=== PATIENT | female | born 1965 | race Caucasian/White ===

== ENCOUNTER 2021-01-20 11:55 | Outpatient (CLI) | payer MEDICARE ==
[~2021-01-20] VITALS: Ht 162.6 cm; Wt 83.8 kg
[2021-01-20] MEDS ORDERED: ILOP4TAB2 PO (12:07)
[2021-01-20] MEDS ORDERED: ARIP1064 IM (12:07)
[2021-01-20] MEDS ORDERED: LEVO150C4 PO (12:07)
[2021-01-20] MEDS ORDERED: ZOLP10TA PO (12:07)
[2021-01-20 12:11] VITALS: BP 107/74
[2021-01-20 12:44] LABS: BILIRUBIN,URINE NEGATIVE (NEGATIVE); CLARITY,URINE CLEAR; COLOR,URINE YELLOW; GLUCOSE, URINE (UA) NEGATIVE (NEGATIVE); KETONES,URINE NEGATIVE (NEGATIVE); LEUKOCYTE ESTERASE ,URINE NEGATIVE (NEGATIVE); NITRITE,URINE NEGATIVE (NEGATIVE); PROTEIN,URINE NEGATIVE (NEGATIVE)
[2021-01-20 12:45] LABS: BASOPHILS % (AUTO) 1 % (0-10); EOSINOPHILS # (AUTO) 0.2 10^3/uL (0.0-0.3); EOSINOPHILS % (AUTO) 4 % (0-10); HEMATOCRIT 40 % (35-52); HEMOGLOBIN 12.7 g/dL (11.5-16.0); LYMPHOCYTES # (AUTO) 1.2 10^3/uL (1.0-4.0); LYMPHOCYTES % (AUTO) 28 % (12-44); MEAN CORPUSCULAR HEMOGLOBIN 28 pg (25-34); MEAN CORPUSCULAR HGB CONC 32 g/dL (32-36); MEAN CORPUSCULAR VOLUME 88 fL (80-99); MEAN PLATELET VOLUME 10.4 fL (9.0-12.2); MONOCYTES # (AUTO) 0.4 10^3/uL (0.0-1.0); MONOCYTES % (AUTO) 10 % (0-12); NEUTROPHILS # (AUTO) 2.6 10^3/uL (1.8-7.8); NEUTROPHILS % (AUTO) 58 % (42-75); PLATELET COUNT 261 10^3/uL (130-400); WHITE BLOOD COUNT 4.4 10^3/uL (4.3-11.0)
--- NOTE | 2021-01-20 12:49 | Diagnostic Imaging Report ---
INDICATION: preop left knee replacement. TECHNIQUE: Two view chest 12:49 PM CORRELATION STUDY: None FINDINGS: The heart size, mediastinal configuration and pulmonary vasculature are within normal limits. The lungs are clear with no consolidating infiltrate. There is no significant pleural effusion or pneumothorax. Visualized osseous structures are unremarkable. IMPRESSION: 1. Negative for acute abnormality of the chest. Dictated by: Dictated on workstation # [id number]
[2021-01-20 12:58] LABS: INR 0.9 (0.8-1.4)
[2021-01-20 13:05] LABS: BACTERIA,URINE MODERATE /HPF
[2021-01-20 13:05] LABS: ALBUMIN 3.9 GM/DL (3.2-4.5); BILIRUBIN,TOTAL 0.2 MG/DL (0.1-1.0); CALCIUM 9.4 MG/DL (8.5-10.1); CREATININE SERUM 0.93 MG/DL (0.60-1.30); POTASSIUM 4.7 MMOL/L (3.6-5.0); TOTAL PROTEIN 6.8 GM/DL (6.4-8.2)
[2021-01-20 13:06] LABS: AMORPHOUS SEDIMENT,UR FEW AMOR URATES /LPF
[2021-01-20 13:09] LABS: ERYTHROCYTE SEDIMENTATION RATE 20 MM/HR (0-30)
== END 2021-01-21 11:54 ==
LOC: PREOP 11:55
PROVIDERS: ATTEND Orthopaedic Surgery
DX: Z01.812 Encounter for preprocedural laboratory examination (principal); M17.12 Unilateral primary osteoarthritis, left knee
CPT/HCPCS: 36415; 71046; 80053; 81000; 85025; 85610; 85652; 86850; 86900; 86901; 87081; 87088

== ENCOUNTER 2021-01-27 05:54 | Inpatient (IN) | payer MEDICARE ==
--- NOTE | 2021-01-21 06:17 | HISTORY AND PHYSICAL ---
DATE OF SERVICE: ADMISSION HISTORY AND PHYSICAL DATE OF ADMISSION: 01/27/2021. Her date of service and surgery and date of admission will be 01/27/2021 for a left total knee arthroplasty. The patient will require regular inpatient admission due to comorbidities, pain management and need for physical therapy. HISTORY OF PRESENT ILLNESS: The patient is a 55-year-old female with progressively worsening left knee pain. Radiographs reveal severe tricompartmental osteoarthritis. She has undergone treatment with injections, anti-inflammatories and rest without relief. Due to functional impairment and failure to improve with conservative measures, the patient elected to proceed with surgical intervention. REVIEW OF SYSTEMS: No chest pain, no shortness of breath, and no dysuria. PAST MEDICAL HISTORY: Back pain, constipation, reflux, allergic rhinitis, depression, hypothyroidism, seizure disorder, and bipolar disorder. PAST SURGICAL HISTORY: Left shoulder arthroscopy, , tubal ligation, and left wrist ORIF. FAMILY HISTORY: Significant for diabetes, hypothyroidism, and coronary artery disease. PRIMARY CARE PROVIDER: [facility]. MEDICATIONS: Levothyroxine, Ambien and promethazine. ALLERGIES: CARIPRAZINE. SOCIAL HISTORY: The patient denies alcohol and tobacco use. PHYSICAL EXAMINATION: GENERAL: The patient is well-developed, well-nourished, in no acute distress. HEENT: Normocephalic and atraumatic. Pupils are equal, round and reactive to light. Oropharynx is clear. LUNGS: Clear to auscultation bilaterally. HEART: Regular rate and rhythm. ABDOMEN: Soft, nontender, and nondistended. EXTREMITIES: The left knee demonstrates varus alignment. She has marked tenderness along the medial joint line. She has patellofemoral crepitus. No varus or valgus laxity. Negative anterior and posterior drawer. Slight effusions noted. Range of motion is 0/2/120. IMPRESSION: Severe left knee osteoarthritis, unresponsive to conservative measures. PLAN: Left total knee arthroplasty. The risks, benefits, options, ramifications and recovery have been discussed at length with the patient. She understands and wishes to proceed. Job ID: [id number] DocumentID: [id number] Dictated Date: 01/08/2021 12:29:38 Presto Log Operator Date: 01/08/2021 12:52:36 Dictated By: KENDAL LANGE MD
[~2021-01-27] VITALS: Ht 162 cm; Wt 83.8 kg
[2021-01-27] VITALS (13 sets, daily range): BP systolic 111–164; BP diastolic 73–94
[~2021-01-27 05:54] MED LIST: ARIP1064 IM; ILOP4TAB2 PO; LEVO150C4 PO; ZOLP10TA PO
--- OUTSIDE RECORDS SUMMARY | 2021-01-27 05:59 | XMS REPORT | Clinical Summary ---
Author Author [facility] Organization [facility] Address Unknown Phone Unavailable Care Team Providers Care Talent Management Manager Name Role Phone PCP Unavailable Allergies Not on File Medications Not on file Active Problems Not on file Social History Date Tobacco Use Types Packs/Day Years Used Never Assessed Sex Assigned at Date Recorded Not on file Last Filed Vital Signs Not on file Plan of Treatment Health Maintenance Due Date Last Done Comments Hepatitis C Screen 1965 Td/Tdap# 1965 COVID-19 Vaccine (1) 1976 Cervical Cancer Screening 1985 via Pap Smear Colorectal Screening via 2014 Colonoscopy Mammogram Screening 2014 Zoster Vaccine# (1 of 2) 2014 Influenza Vaccine (#1) 2021 03/01/2019, 03/01/2019, 02/15/2018, Additional history exists Pneumococcal Vaccine: Aged Out No longer eligib le based on patient's age to Pediatrics (0 to 5 Years) complete this topic and At-Risk Patients (6 to 64 Years) Results Not on filefrom Last 3 Months Insurance Type Payer Benefit Subscriber ID Effective Phone Address Plan / Dates Group WORKERS COMPENSATION MISC WORK [id number] COMP -Present Advance Directives For more information, please contact: [phone] Patient Solution Developer Explanation Type Date Recorded Health Care Directive
[2021-01-27] MEDS ORDERED: CEFUROXIME INJECTION 1,500 MG in WATER (STERILE) FOR INJECTION 15 ML IV ONE (06:15)
[2021-01-27] MEDS ORDERED: BUPIVACAINE 0.25% 30 ML (SENSORCAINE) VIAL ONE (06:34)
[2021-01-27] MEDS ORDERED: MIDAZOLAM 2 MG/2 ML (VERSED) VIAL ONE ×2 (06:34→06:51)
[2021-01-27] MEDS ORDERED: LIDOCAINE PF 2% 5 ML (XYLOCAINE) VIAL ONE ×2 (06:34→06:51)
[2021-01-27] MEDS ORDERED: SEVOFLURANE (ULTANE) 15 ML INHAL SOLN ONE ×2 (06:51→08:40)
[2021-01-27] MEDS ORDERED: fentaNYL INJ 100 MCG/2 ML AMP ONE (06:51)
[2021-01-27] MEDS ORDERED: proPOfol 200 MG/20 ML (DIPRIVAN) VIAL IV ONE (06:51)
[2021-01-27] MEDS: LACTATED RINGERS 1,000 ML IV PRN ×2 (06:52→07:55)
[2021-01-27] MEDS ORDERED: ONDANSETRON 4 MG/2 ML (SDV) Z0FRAN IVP PRN ×2 (07:30→09:15)
[2021-01-27] MEDS ORDERED: morphine PCA 100 MG/100 ML BAG IV PRN (07:30)
[2021-01-27] MEDS ORDERED: diphenhydrAMINE 50 MG/ML INJ (BENADRYL) IVP PRN (07:30)
[2021-01-27] MEDS ORDERED: NALOXONE 0.4 MG/ML 1 ML (NARCAN) VIAL IV PRN (07:30)
--- NOTE | 2021-01-27 07:32 | Progress Note-Post Operative ---
Post-Operative Progess Note Surgeon (s)/Netbackup Administrator (s) Surgeon KENDAL LANGE MD Netbackup Administrator: Rikki Capellan Pre-Operative Diagnosis left knee primary osteoarthritis Post-Operative Diagnosis left knee primary osteoarthritis Procedure & Operative Findings Date of Procedure 01/27/21 Procedure Performed/Findings left total knee arthroplasty Anesthesia Type GETA Estimated Blood Loss Estimated blood loss (mL): minimal Specimens/Packing Specimens Removed none Packing: none KENDAL LANGE MD Jan 27, 2021 07:32
--- NOTE | 2021-01-27 07:32 | Progress Note-Pre Operative ---
Pre-Operative Progress Note H&P Reviewed The H&P was reviewed, patient examined and no changes noted. Date Seen by Provider: Jan 27, 2021 Time Seen by Provider: 07:20 Date H&P Reviewed: Jan 27, 2021 Time H&P Reviewed: 07:11 Pre-Operative Diagnosis: left knee primary osteoarthritis KENDAL LANGE MD Jan 27, 2021 07:32
--- NOTE | 2021-01-27 07:35 | D/C HH Face to Face Order ---
D/C Face to Face Orders Reconcile Patient Problems Problems Reviewed?: Yes Instructions for Patient Via [facility], Patient Instructions/FollowUp: three weeks Physician to follow Patient: three weeks Discharge Diet for Home: Regular Diet Patient Data-Allergies,Ht & Wt Patient Allergies: Coded Allergies: lurasidone (Verified Allergy, Unknown, "wanted to kill people", 01/20/21) propranolol (Verified Allergy, Unknown, swollen eyes and dizziness, 01/20/21) Home Health Need/Face to Face Date of Face to Face: Jan 27, 2021 Clinical Findings: Instability, Muscle weakness, Pain with ambulation, Unsteady gait I have seen Pt pgie-gh-bjjf: Yes Discharged To: Home Diagnosis/Conditions: left total knee arthroplasty Patient is Homebound due to: Ankush fall risk due to instabilty, Muscle weaknes s, Pain w/ambulation Homebound Status Due to the above stated illness, injury or surgical procedure (medical condition or diagnosis) and associated clinical findings, the patient is homebound because of his/her inability to leave home except with aid of a supportive device and/or person AND leaving the home requires a considerable and taxing effort or is medically contraindicated. Pt req the following assistanc: Walker Home Health Nursing Orders Home Health Services Order: Physical Therapy-Evaluate & Treat DC left knee arielle and apply steri strips 02/10/21 Home Health Infusion Therapy Line Start Date: Jan 27, 2021 Therapy Orders Therapy Orders: Physical Therapy, PT to assess for OT Therapy Specific Orders: Eval assistive deivces, Teach enviro modifications/safety, Gait training, Increase strength/endurance, Provider maintenance therapy, Restore ROM Certify Stmt I certify that this patient is under my care and that I, a nurse practitioner or a physician; a physician assistant surgery working with me, had a face to face encounter that - meets the physician face to face encounter requirements with this patient as dated. KENDAL LANGE MD Jan 27, 2021 07:35
[2021-01-27] MEDS ORDERED: TRANEXAMIC ACID 100 MG/ML 10 ML INJECTION ONE (07:41)
[2021-01-27] MEDS ORDERED: INTRA-ARTICULAR IU ONE ×5 (07:45)
[2021-01-27] MEDS ORDERED: HYDROmorphone 2 MG/ML VIAL (DILAUDID) ONE (07:56)
[2021-01-27] MEDS ORDERED: ESMOLOL 100 MG/10 ML (BREVIBLOC) VIAL ONE (08:01)
[2021-01-27] MEDS ORDERED: KETOROLAC 30 MG/ML VIAL ONE (08:59)
[2021-01-27] MEDS ORDERED: HYDROmorphone 2 MG/ML VIAL (DILAUDID) IV ONE (09:15)
--- NOTE | 2021-01-27 10:05 | Diagnostic Imaging Report ---
INDICATION: Osteoarthritis. 2 views were obtained. FINDINGS: There are postsurgical changes of left knee arthroplasty. Hardware is in satisfactory position. There is no fracture or dislocation. IMPRESSION: Stable postsurgical changes of left knee arthroplasty. Dictated by: Dictated on workstation # [id number]
--- NOTE | 2021-01-27 10:15 | Progress Note ---
Standard Progress Note Progress Notes/Assess & Plan Date Seen by a Provider: Jan 27, 2021 Time Seen by a Provider: 09:30 Progress/Assessment & Plan post op check no complaints radiographs--HW well positioned without fracture LLE--dressing intact. 2 plus DP pulse with brisk cap refill. INtact DF and PF of toes and ankle. Sensation intact to light touch throughout s/p LTKA mobilize as able KENDAL LANGE MD Jan 27, 2021 10:15
[2021-01-27] MEDS ORDERED: KETOROLAC 30 MG/ML VIAL IVP ONE (10:30)
[2021-01-27] MEDS: SENNA W/DOCUSATE (SENOKOT S) TABLET PO SCH ×2 (11:52→19:27)
[2021-01-27] MEDS: oxyCODONE/APAP 5/325MG (PERCOCET 5) TABLET PO PRN ×2 (12:06→23:30)
[2021-01-27] MEDS: NS IV 1000 ML 1,000 ML IV SCH ×2 (12:10→20:40)
--- NOTE | 2021-01-27 14:07 | OPERATIVE REPORT ---
DATE OF SERVICE: 01/27/2021 PREOPERATIVE DIAGNOSIS: Left knee primary osteoarthritis. POSTOPERATIVE DIAGNOSIS: Left knee primary osteoarthritis. PROCEDURE: Left total knee arthroplasty. SURGEON: Omero Lange MD SENIOR QUALITY CONTROL INSPECTOR: Rikki Capellan, who assisted throughout the procedure and closed the incision. ANESTHESIA: General endotracheal by Lucas Stone CRNA. TOURNIQUET TIME: Approximately 65 minutes at 300 mmHg. ESTIMATED BLOOD LOSS: Minimal. DRAINS: None. COMPLICATIONS: None. POSTOPERATIVE PLAN: Routine total knee arthroplasty protocol. The patient was transferred to the recovery room awake and in stable condition. STATEMENT OF MEDICAL NECESSITY: The patient is a 55-year-old female with long-standing left knee pain. She has undergone treatment with injections, anti-inflammatories and rest without relief. Radiographs revealed severe osteoarthritis primarily in her medial and patellofemoral compartments. Due to functional impairment and failure to improve with conservative measures, the patient elected to proceed with surgical intervention. DESCRIPTION OF PROCEDURE: After risks and benefits of procedure were discussed and questions were answered, an informed consent was signed and placed on chart, the operative site was confirmed in the preoperative holding area initialed by the surgeon. The patient was then transferred to the operating room and after adequate levels of general endotracheal anesthetic were obtained, a timeout was called, confirming the operative site and examination under anesthesia was performed and the left lower extremity was prepped and draped in the usual sterile fashion. With the leg elevated and the knee flexed, the tourniquet was inflated to 300 mmHg. Standard anterior approach was utilized. Hemostasis was obtained with cautery. Medial parapatellar arthrotomy was performed leaving 1 cm cuff on the patella for later reattachment. A portion of the fat pad was resected. Subperiosteal release was performed in the proximal medial tibia with curved osteotome. The ACL was resected. The intramedullary guide was passed into the distal femur. The distal cut was made and the femur sized to a size 3. The 3 cutting block was placed parallel to the epicondylar axis and the cuts were made from posterior to anterior. Subperiosteal release was then carefully performed on the posterior distal femur being careful to stay on the bony surface. The intramedullary guide was then passed into the tibia. The cutting block was pinned into position. The drop margarita transected the intermalleolar axis and the cut was made. This was then prepared with the drill and keel punch using the three block again ensuring that the drop margarita transected the intermalleolar axis. The femoral trial was placed and the trochlear cut was made. A 10 mm insert was placed and the patella was prepared by resecting 10 mm off, the undersurface was then prepared with peg guide. The trials were inserted with a 32 mm trial in the patella. Full extension was easily obtained, 120 degrees of flexion with gravity was easily obtained. There was no anterior/posterior or medial/lateral laxity in flexion or extension. The patella tracked well. The trials were removed. The joint was irrigated with pulse lavage as were the bone ends. The periarticular block was placed in the posterior capsule, medial and lateral retinaculum extensor mechanism and subcutaneous tissues. The bone ends were further irrigated and dried. The tibial baseplate was cemented into position. Excessive cement was removed, the superior surface was irrigated and dried. The polyethylene insert was placed. The distal femur was irrigated and dried. The final femoral prosthesis was cemented into position. Excessive cement was removed. The knee was brought out into full extension and held until the cement had cured. The undersurface of patella was irrigated and dried and the patellar button was cemented into position. Once the cement had cured, the knee was taken through range of motion and the patella tracked well. Full extension was easily obtained, 120 degrees of flexion with gravity was easily obtained. There was no anterior/posterior or medial/lateral laxity in flexion or extension. The joint was further irrigated with pulse lavage. Arthrotomy was closed with #2 Tevdek in mbjury-rg-pbgzt interrupted fashion. Knee was flexed. The repair was stable with patella tracking well. Subcutaneous tissues were irrigated using a total of 6 liters throughout the procedure. A 0 Vicryl was used for deep subcutaneous tissue, 2-0 Vicryl for the superficial subcutaneous tissue, arielle were used on the skin. A soft dressing was applied. The tourniquet was deflated and the patient was transferred to the recovery room awake and in stable condition. Job ID: [id number] DocumentID: [id number] Dictated Date: 01/27/2021 09:15:39 Corporate Tax Manager Date: 01/27/2021 14:06:58 Dictated By: OMERO LANGE MD
--- NOTE | 2021-01-27 14:29 | Physical Therapy Evaluation ---
PT Evaluation-General Medical Diagnosis Admission Date Jan 27, 2021 at 05:54 Medical Diagnosis: Left TKA Onset Date: Jan 26, 2021 Therapy Diagnosis Therapy Diagnosis: Gait deficit, strength deficit Precautions Precautions/Isolations: Fall Prevention, Standard Precautions Weight Bear Status Left Lower Extremity: Left Weight Bearing/Tolerated Referral Physician: Dr. Galvan Reason for Referral: Evaluation/Treatment Social History Home: [facility] Current Living Status: Parents Entry Into Home: Stairs With Railing PT Steps Into Home: 1 PT Steps Inside Home: 15 Prior Prior Level of Function SCALE: Activities may be completed with or without assistive devices. 7-Eguufkiuyy-bsgdzmu completes the activity by him/herself with no assistance from a helper. 5-Set-up or Clean-up Assistance-helper sets up or cleans up; patient completes activity. [place] assists only prior to or following the activity. 4-Supervision or Touching Assistance-helper provides verbal cues and/or touching/steadying and/or contact guard assistance as patient completes activity. Assistance may be provided throughout the activity or intermittently. 3-Partial/Moderate Assistance-helper does LESS THAN HALF the effort. [place] lifts, holds or supports trunk or limbs, but provides less than half the effort. 2-Substantial/Maximal Assistance-helper does MORE THAN HALF the effort. [place] lifts or holds trunk or limbs and provides more than half the effort. 4-Egomzhvmj-nldqyk does ALL the effort. Patient does none of the effort to complete the activity. Or, the assistance of 2 or more helpers is required for the patient to complete the activity. If activity was not attempted, code reason: 7-Patient Refused. 9-Not Applicable-not attempted and the patient did not perform the activity before the current illness, exacerbation or injury. 10-Not Attempted due to Environmental Limitations-(lack of equipment, weather restraints, etc.). 88-Not Attempted due to Medical Conditions or Safety Concerns. Bed Mobility: 6 Transfers (B,C,W/C): 6 Gait: 6 Stairs: 6 Indoor Mobility (Ambulation): Independent Stairs: Independent PT Evaluation-Current Subjective Patient lying supine in bed upon PT arrival, agreeable to treatment. Patient reports 4/10 pain in left knee. ROM/Strength ROM Lower Extremities Left knee extension 10 degrees from neutral Left knee flexion 70 degrees Strength Lower Extremities Right LE 4/5 grossly Left LE 3-/5 all available planes Sensory Vision: Functional Hearing: Functional Sensation Right Lower Extremit: Intact Sensation Left Lower Extremity: Impaired Sensation Lower Extremities Patient reports she is unable to feel light touch below left knee Transfers Roll Left to Right (QC): 5 Sit to Lying (QC): 5 Lying to Sitting/Side of Bed(Q: 5 Sit to Stand (QC): 5 Chair/Eyv-ih-Prxgm Xfer(QC): 4 Gait Does the Patient Walk?: Yes Mode of Locomotion: Walk Anticipated Mode of Locomotion: Walk Walk 10 feet (QC): 4 Distance: 15 Gait Assistive Device: FWW Balance Sitting Static: Good Sitting Dynamic: Fair Standing Static: Fair Assessment/Needs Patient tolerated treatment well. She performed all observed bed mobility and transfers with SBA/CGA. Patient ambulates 15 feet to the chair, with FWW, with CGA and verbal cues for safety, progression of left LE and use of FWW. Patient ambulates with antalgic gait pattern, little to no stance time on the left LE, with hop to gait pattern on the right LE. Patient in chair post treatment with all needs met, nursing notified, call light in reach. CPM fit appropriately to left knee and set at 0 degrees extension and 75 Degrees flexion. Ran the delia e through 4 cycles to ensure fit was appropriate. Rehab Potential: Good PT Skilled Nursing Goals Skilled Nursing Goals PT Skilled Nursing Goals Time Frame: Feb 03, 2021 Roll Left & Right (QC): 6 Sit to Lying (QC): 6 Lying-Sitting on Side/Bed(QC): 6 Sit to Stand (QC): 6 Chair/Pvm-fy-Qnkxl Xfer(QC): 6 Toilet Transfer (QC): 6 Car Transfer (QC): 6 Does the Patient Walk: Yes Walk 10 feet (QC): 6 Walk 50ft with 2 Turns (QC): 6 Walk 150 ft (QC): 5 1 Step (curb) (QC): 4 4 Steps (QC): 4 12 Steps (QC): 4 PT Plan Problem List Problem List: Activity Tolerance, Functional Strength, Safety, Balance, Gait, Transfer, Bed Mobility, ROM Treatment/Plan Treatment Plan: Continue Plan of Care Treatment Plan: Bed Mobility, Education, Functional Activity Olegario, Functional Strength, Group Therapy, Gait, Safety, Therapeutic Exercise, Transfers Treatment Duration: Mar 31, 2021 Frequency: 11 times per week Estimated Hrs Per Day: .25 hour per day Safety Risks/Education Patient Education: Gait Training, Transfer Techniques, Reviewed Precautions Teaching Recipient: Patient Teaching Methods: Demonstration, Discussion Response to Teaching: Verbalize Understanding, Return Demonstration Discharge Recommendations Equpiment Recommendations-D/C: Front Wheeled Walker Time/GCodes Time In: 1325 Time Out: 1355 Total Billed Treatment Time: 30 Total Billed Treatment Visit, Linda Urrutia, CPM TATY ALBERTO PT Jan 27, 2021 14:29
[2021-01-27] MEDS: CEFUROXIME INJECTION 750 MG in WATER (STERILE) FOR INJECTION 10 ML IV SCH ×2 (15:37→23:30)
[2021-01-28] VITALS: BP 123/85
[2021-01-28] MEDS: NS IV 1000 ML 1,000 ML IV SCH ×2 (03:31→17:08)
[2021-01-28] MEDS: oxyCODONE/APAP 5/325MG (PERCOCET 5) TABLET PO PRN ×7 (03:35→23:38)
[2021-01-28 04:00] VITALS: BP 102/66
[2021-01-28] MEDS: MULTIVIT W/MINERALS TAB (THERAGRAN M) PO SCH (05:25)
[2021-01-28 07:06] LABS: HEMOGLOBIN 10.7 g/dL (11.5-16.0)
--- NOTE | 2021-01-28 08:02 | Progress Note ---
Standard Progress Note Progress Notes/Assess & Plan Date Seen by a Provider: Jan 28, 2021 Time Seen by a Provider: 08:01 Progress/Assessment & Plan post op check no complaints radiographs--HW well positioned without fracture LLE--dressing intact. 2 plus DP pulse with brisk cap refill. INtact DF and PF of toes and ankle. Sensation intact to light touch throughout s/p LTKA mobilize as able Final Diagnosis no complaints paresthesias resolved Vital Signs Date Time Temp Pulse Resp B/P (MAP) Pulse Ox O2 Delivery O2 Flow Rate FiO2 01/28/21 04:00 36.7 83 18 102/66 (78) 93 Room Air 01/28/21 00:00 36.2 91 20 123/85 (98) 99 Room Air 01/27/21 19:31 36.0 74 20 133/73 (93) 98 Room Air 01/27/21 19:30 Room Air 01/27/21 15:52 35.6 74 18 133/85 (101) 96 Room Air 01/27/21 12:30 16 01/27/21 11:23 36.0 70 16 144/87 (106) 94 Room Air 01/27/21 10:20 36.0 81 20 164/91 (115) 97 Room Air 01/27/21 10:05 Room Air 01/27/21 10:05 36.4 18 145/78 (100) 94 Room Air 01/27/21 10:05 Room Air 01/27/21 10:00 Room Air 01/27/21 10:00 18 145/78 (100) 94 Room Air 01/27/21 09:50 16 134/88 (103) 94 Room Air 01/27/21 09:45 Room Air 01/27/21 09:40 20 142/91 (108) 100 Room Air 01/27/21 09:30 OxyMask 3 01/27/21 09:30 18 156/94 (114) 100 OxyMask 3 01/27/21 09:20 OxyMask 5 01/27/21 09:20 16 138/93 (108) 100 OxyMask 5 01/27/21 09:10 12 123/78 (93) 100 OxyMask 6 01/27/21 09:06 OxyMask 8 01/27/21 09:06 36.7 12 111/76 (88) 96 OxyMask 8 I & O 01/28/21 07:00 Intake Total 3115 ml Output Total 200 ml Balance 2915 ml Laboratory Tests Test 01/28/21 05:42 Range/Units Hemoglobin 10.7 L 11.5-16.0 g/dL Hematocrit 34 L 35-52 % LLE--NVI distally. No calf tenderness neg Jovita's s/p LTKA doing very well PT/OT KENDAL LANGE MD Jan 28, 2021 08:02
[2021-01-28 08:04] VITALS: BP 131/82
[2021-01-28] MEDS: SENNA W/DOCUSATE (SENOKOT S) TABLET PO SCH ×2 (08:05→19:41)
[2021-01-28] MEDS: ASPIRIN E.C. 81 MG (ECOTRIN) TAB PO SCH (08:05)
[2021-01-28] MEDS: ENOXAPARIN 30 MG/0.3 ML (LOVENOX) SYR SC SCH ×2 (08:08→19:41)
--- NOTE | 2021-01-28 10:09 | Physical Therapy Daily Note ---
PT Daily Note-Current Subjective Patient agrees to PT. Mental Status Patient Orientation: Normal For Age Attachments: Polar Pack, IV Transfers SCALE: Activities may be completed with or without assistive devices. 6-Oqpweaywfi-nvjlyuw completes the activity by him/herself with no assistance from a helper. 5-Set-up or Clean-up Assistance-helper sets up or cleans up; patient completes activity. [place] assists only prior to or following the activity. 4-Supervision or Touching Assistance-helper provides verbal cues and/or touching/steadying and/or contact guard assistance as patient completes activity. Assistance may be provided throughout the activity or intermittently. 3-Partial/Moderate Assistance-helper does LESS THAN HALF the effort. [place] lifts, holds or supports trunk or limbs, but provides less than half the effort. 2-Substantial/Maximal Assistance-helper does MORE THAN HALF the effort. [place] lifts or holds trunk or limbs and provides more than half the effort. 1-Nerucjzwm-xdkpmv does ALL the effort. Patient does none of the effort to complete the activity. Or, the assistance of 2 or more helpers is required for the patient to complete the activity. If activity was not attempted, code reason: 7-Patient Refused. 9-Not Applicable-not attempted and the patient did not perform the activity before the current illness, exacerbation or injury. 10-Not Attempted due to Environmental Limitations-(lack of equipment, weather restraints, etc.). 88-Not Attempted due to Medical Conditions or Safety Concerns. Lying to Sitting/Side of Bed(Q: 6 Sit to Stand (QC): 6 Chair/Tcc-rp-Mumvk Xfer(QC): 6 Weight Bearing Left Lower Extremity: Left Weight Bearing/Tolerated Gait Training Does the Patient Walk?: Yes Distance: 275' Walk 10 feet (QC): 4 Walk 50 ft with 2 Turns(QC): 4 Walk 150 ft (QC): 4 Gait Assistive Device: FWW slow, antalgic, functional gait sequence Exercises Supine Ex: Ankle pumps, Quad Set, Heel Slides, Straight leg raise Supine Reps: 15 Seated Therapy Exercises: Long arc quads Seated Reps: 15 Assessment Patient tolerated treatment well and is up in recliner with needs met. PT Nuclear Plant Technical Advisor Goals Nuclear Plant Technical Advisor Goals PT Nuclear Plant Technical Advisor Goals Time Frame: Feb 03, 2021 Roll Left & Right (QC): 6 Sit to Lying (QC): 6 Lying-Sitting on Side/Bed(QC): 6 Sit to Stand (QC): 6 Chair/Irx-gb-Ttucy Xfer(QC): 6 Toilet Transfer (QC): 6 Car Transfer (QC): 6 Does the Patient Walk: Yes Walk 10 feet (QC): 6 Walk 50ft with 2 Turns (QC): 6 Walk 150 ft (QC): 5 1 Step (curb) (QC): 4 4 Steps (QC): 4 12 Steps (QC): 4 PT Plan Treatment/Plan Treatment Plan: Continue Plan of Care Treatment Plan: Bed Mobility, Education, Functional Activity Olegario, Functional Strength, Group Therapy, Gait, Safety, Therapeutic Exercise, Transfers Treatment Duration: Mar 31, 2021 Frequency: 11 times per week Estimated Hrs Per Day: .25 hour per day Time/GCodes Time In: 750 Time Out: 820 Total Billed Treatment Time: 30 Total Billed Treatment 1 visit EX 16 min GT 14 min POLLO PARK PT Jan 28, 2021 10:09
[2021-01-28 11:30] VITALS: BP 140/81
--- NOTE | 2021-01-28 11:56 | Occupational Therapy Eval ---
OT Evaluation-General/PLF Medical Diagnosis Admission Date Jan 27, 2021 at 05:54 Medical Diagnosis: Left TKA Onset Date: Jan 26, 2021 Therapy Diagnosis Therapy Diagnosis: Left TKA Precautions Precautions/Isolations: Fall Prevention, Standard Precautions Weight Bear Status Weight Bearing Restriction: Weight Bearing/Tolerated Location Restriction: L LE Referral Physician: Dr. Galvan Referral Reason: Evaluation/Treatment Medical History Current History Pt reports living with her parents in a multilevel home. All needs can be met on main level. She was indep with I/adls and was not using any AD prior to admission. She still drives. She was helping care for her parents but reports that her brother will be assisting while she is healing. Reviewed History: Yes Social History Home: Multilevel Current Living Status: Parents Entry Into Home: Stairs With Railing Steps Into Home: 1 Steps Inside Home: 3 ADL-Prior Level of Function SCALE: Activities may be completed with or without assistive devices. 5-Jzuebgtkwe-wlpobln completes the activity by him/herself with no assistance from a helper. 5-Set-up or Clean-up Assistance-helper sets up or cleans up; patient completes activity. [place] assists only prior to or following the activity. 4-Supervision or Touching Assistance-helper provides verbal cues and/or touching/steadying and/or contact guard assistance as patient completes activity. Assistance may be provided throughout the activity or intermittently. 3-Partial/Moderate Assistance-helper does LESS THAN HALF the effort. [place] lifts, holds or supports trunk or limbs, but provides less than half the effort. 2-Substantial/Maximal Assistance-helper does MORE THAN HALF the effort. [place] lifts or holds trunk or limbs and provides more than half the effort. 3-Rtkzozacd-pcifnd does ALL the effort. Patient does none of the effort to complete the activity. Or, the assistance of 2 or more helpers is required for the patient to complete the activity. If activity was not attempted, code reason: 7-Patient Refused. 9-Not Applicable-not attempted and the patient did not perform the activity before the current illness, exacerbation or injury. 10-Not Attempted due to Environmental Limitations-(lack of equipment, weather restraints, etc.). 88-Not Attempted due to Medical Conditions or Safety Concerns. Self Care: Independent Functional Cognition: Independent DME/Equipment Comments Pt reports bathroom is fully handicap accessible. Drive Self: Yes OT Current Status Subjective Pt reports pain as 9/10 and that pain meds were given ~1 hour prior. Appearance Pt left supine in bed, all needs within reach. Mental Status/Objective Attachments: IV Current Hand Dominance: Right Upper Extremity ROM WFL Other Treatments Pt declines any OOB/EOB activities secondary to pain and currently wearing CPM machine. She reports being indep with donning clothes this date, RN confirms this. Education provided on bathing including safety and covering of incision. Pt reports understanding. Per PT note, pt was SBA with gait. She declines any further OT services at this time. OT to d/c. Education OT Patient Education: Correct positioning, Modified ADL techniques, Purpose of tx/functional activities Teaching Recipient: Patient Teaching Methods: Discussion Response to Teaching: Verbalize Understanding OT Care Home Goals Supervisor Final Goals 1=Demonstrate adherence to instructed precautions during ADL tasks. 2=Patient will verbalize/demonstrate understanding of assistive devices/modifications for ADL. 3=Patient will improve strength/tolerance for activity to enable patient to perform ADL's. OT Education/Plan Problem List/Assessment Assessment: No Skilled OT Needs ID'd Discharge Recommendations Plan/Recommendations: Discontinue OT Therapy Discharge Recommendati: Home & Family Treatment Plan/Plan of Care Treatment,Training & Education: Yes Patient would benefit from OT for education, treatment and training to promote independence in ADL's, mobility, safety and/or upper extremity function for ADL's. Plan of Care: ADL Retraining Treatment Duration: Jan 28, 2021 Frequency: 1 time per week Estimated Hrs Per Day: .25 hour per day Agreement: Yes Rehab Potential: Good Time/GCodes Start Time: 11:20 Stop Time: 11:30 Total Time Billed (hr/min): 10 Billed Treatment Time 1, Anne Zhou OT Jan 28, 2021 11:56
--- NOTE | 2021-01-28 14:29 | Anesthesia-Regional Post-Op ---
Regional Patient Condition Mental Status: Alert, Oriented x3 Circulation: Same as Pre-Op Headache: Absent Sensation: Full Recovery Motor Block: Absent Post Op Complications Complications None Follow Up Care/Instructions Patient Instructions None needed. Anesthesia/Patient Condition Patient is doing well, no complaints, stable vital signs, no apparent adverse anesthesia problems. No complications reported per nursing. VERA MARTINEZ CRNA Jan 28, 2021 14:29
--- NOTE | 2021-01-28 14:30 | Physical Therapy Daily Note ---
PT Daily Note-Current Subjective Patient in 02/14 left knee pain. Just received pain medication. Very tearful. Pain Numeric Pain Scale: 10-Worst Possible Pain Location: Left Location Body Site: Knee Pain Description: Acute Mental Status Patient Orientation: Normal For Age Attachments: IV JOURNEYMAN MECHANIC Transfers SCALE: Activities may be completed with or without assistive devices. 4-Xtckrqwkkk-qrlapnr completes the activity by him/herself with no assistance from a helper. 5-Set-up or Clean-up Assistance-helper sets up or cleans up; patient completes activity. [place] assists only prior to or following the activity. 4-Supervision or Touching Assistance-helper provides verbal cues and/or touching/steadying and/or contact guard assistance as patient completes activity. Assistance may be provided throughout the activity or intermittently. 3-Partial/Moderate Assistance-helper does LESS THAN HALF the effort. [place] lifts, holds or supports trunk or limbs, but provides less than half the effort. 2-Substantial/Maximal Assistance-helper does MORE THAN HALF the effort. [place] lifts or holds trunk or limbs and provides more than half the effort. 0-Oylgkcloa-ystqel does ALL the effort. Patient does none of the effort to complete the activity. Or, the assistance of 2 or more helpers is required for the patient to complete the activity. If activity was not attempted, code reason: 7-Patient Refused. 9-Not Applicable-not attempted and the patient did not perform the activity before the current illness, exacerbation or injury. 10-Not Attempted due to Environmental Limitations-(lack of equipment, weather restraints, etc.). 88-Not Attempted due to Medical Conditions or Safety Concerns. Sit to Lying (QC): 6 Lying to Sitting/Side of Bed(Q: 6 Sit to Stand (QC): 6 Weight Bearing Left Lower Extremity: Left Weight Bearing/Tolerated Gait Training Does the Patient Walk?: Yes Distance: 250' Walk 10 feet (QC): 6 Walk 50 ft with 2 Turns(QC): 6 Walk 150 ft (QC): 6 Gait Assistive Device: FWW slow, antalgic, step to gait sequence Exercises Supine Ex: Ankle pumps, Quad Set, Heel Slides, Straight leg raise Supine Reps: 15 Seated Therapy Exercises: Long arc quads Seated Reps: 15 Treatments CPM 0-80 degrees with polar pack in place. Assessment Patient tolerated treatment and calmed during session. Plan dismissal tomorrow after PT. PT Auditing Specialist Goals Auditing Specialist Goals PT Auditing Specialist Goals Time Frame: Feb 03, 2021 Roll Left & Right (QC): 6 Sit to Lying (QC): 6 Lying-Sitting on Side/Bed(QC): 6 Sit to Stand (QC): 6 Chair/Qbv-qa-Tkyaj Xfer(QC): 6 Toilet Transfer (QC): 6 Car Transfer (QC): 6 Does the Patient Walk: Yes Walk 10 feet (QC): 6 Walk 50ft with 2 Turns (QC): 6 Walk 150 ft (QC): 5 1 Step (curb) (QC): 4 4 Steps (QC): 4 12 Steps (QC): 4 PT Plan Treatment/Plan Treatment Plan: Continue Plan of Care Treatment Plan: Bed Mobility, Education, Functional Activity Olegario, Functional Strength, Group Therapy, Gait, Safety, Therapeutic Exercise, Transfers Treatment Duration: Mar 31, 2021 Frequency: 11 times per week Estimated Hrs Per Day: .25 hour per day Time/GCodes Time In: 1310 Time Out: 1335 Total Billed Treatment Time: 25 Total Billed Treatment 1 visit EX 14 min GT 11 min POLLO PARK PT Jan 28, 2021 14:30
[2021-01-28] MEDS ORDERED: DICL50TA6 PO (15:50)
[2021-01-28] MEDS ORDERED: LEVO175T58 PO (15:50)
[2021-01-28 16:11] VITALS: BP 151/87
[2021-01-28] MEDS ORDERED: morphine INJ 10 MG/ML 1ML (SYR OR VIAL) IVP STA (17:25)
[2021-01-28] MEDS ORDERED: morphine INJ 4 MG/ML 1 ML (VIAL/SYRINGE) ONE (17:33)
[2021-01-28 19:39] VITALS: BP 133/87
[2021-01-28] MEDS: ZOLPIDEM 5 MG (AMBIEN) TAB PO PRN (23:38)
[2021-01-29] VITALS: BP 135/87
[2021-01-29] MEDS: oxyCODONE/APAP 5/325MG (PERCOCET 5) TABLET PO PRN ×9 (02:25→23:03)
--- NOTE | 2021-01-29 03:52 | DISCHARGE SUMMARY ---
DATE OF SERVICE: DIAGNOSES: 1. Left knee primary osteoarthritis. 2. Back pain. 3. Reflux. 4. Allergic rhinitis. 5. Depression. 6. Hypothyroidism. 7. Seizure disorder. 8. Bipolar disorder. PROCEDURE: Left total knee arthroplasty. SUMMARY: The patient is a 55-year-old female who underwent the left total knee arthroplasty on the day of admission. Postoperatively, she did well. At time of discharge, her wound was clean and dry. She had no calf tenderness. Negative Homans sign. She was tolerating a diet well and tolerating pain with oral pain medication. CONDITION AT DISCHARGE: Good. DISCHARGE DIET: Regular. FOLLOWUP: Followup is in three weeks. ACTIVITIES: Weightbearing as tolerated with a walker as needed for pain. Home physical therapy will be arranged. DISCHARGE MEDICATIONS: Home medications, Percocet as needed for pain and one aspirin per day for 30 days. Job ID: [id number] DocumentID: [id number] Dictated Date: 01/28/2021 15:47:10 Radiology Equipment Servicer Date: 01/29/2021 03:52:09 Dictated By: KENDAL LANGE MD
[2021-01-29 04:11] VITALS: BP 133/90
[2021-01-29] MEDS: MULTIVIT W/MINERALS TAB (THERAGRAN M) PO SCH (04:59)
[2021-01-29 06:55] LABS: HEMOGLOBIN 9.5 g/dL (11.5-16.0)
--- NOTE | 2021-01-29 07:03 | Progress Note ---
Standard Progress Note Progress Notes/Assess & Plan Date Seen by a Provider: Jan 29, 2021 Time Seen by a Provider: 07:02 Progress/Assessment & Plan post op check no complaints radiographs--HW well positioned without fracture LLE--dressing intact. 2 plus DP pulse with brisk cap refill. INtact DF and PF of toes and ankle. Sensation intact to light touch throughout s/p LTKA mobilize as able Final Diagnosis Had sig pain yday PM but much better today Vital Signs Date Time Temp Pulse Resp B/P (MAP) Pulse Ox O2 Delivery O2 Flow Rate FiO2 01/29/21 04:11 36.2 76 18 133/90 (104) 96 Room Air 01/29/21 00:00 35.8 91 16 135/87 (103) 99 Room Air 01/28/21 23:37 Room Air 01/28/21 19:40 Room Air 01/28/21 19:39 35.9 80 20 133/87 (102) 96 Room Air 01/28/21 16:11 36.5 89 20 151/87 (108) 96 Room Air 01/28/21 11:30 36.5 77 16 140/81 (100) 97 Room Air 01/28/21 08:04 36.8 80 20 131/82 (98) 99 Room Air 01/28/21 08:00 Room Air I & O 01/29/21 07:00 Intake Total 2009 ml Balance 2009 ml Laboratory Tests Test 01/29/21 06:42 Range/Units Hemoglobin 9.5 L 11.5-16.0 g/dL Hematocrit 30 L 35-52 % LLE--incision clean and dry. No calf tenderness. Neg Jovita's s/p LTKA doing well DC today KENDAL LANGE MD Jan 29, 2021 07:03
[2021-01-29] MEDS: ENOXAPARIN 30 MG/0.3 ML (LOVENOX) SYR SC SCH ×2 (07:31→20:57)
[2021-01-29] MEDS: ASPIRIN E.C. 81 MG (ECOTRIN) TAB PO SCH (07:31)
[2021-01-29] MEDS: SENNA W/DOCUSATE (SENOKOT S) TABLET PO SCH ×2 (07:31→20:57)
[2021-01-29] MEDS: NS IV 1000 ML 1,000 ML IV SCH (07:31)
[2021-01-29 07:54] VITALS: BP 173/82
[2021-01-29] MEDS ORDERED: oxyCODONE/APAP 5/325MG (PERCOCET 5) TABLET PO ONE (09:00)
--- NOTE | 2021-01-29 11:15 | Physical Therapy Daily Note ---
PT Daily Note-Current Subjective Patient reluctantly agrees to PT. Reports 02/14 left knee patient with meds issued and RN INTERN use. Pain Numeric Pain Scale: 10-Worst Possible Pain Location: Left Location Body Site: Knee Pain Description: Acute Mental Status Patient Orientation: Normal For Age Attachments: Polar Pack, IV Transfers SCALE: Activities may be completed with or without assistive devices. 0-Poarzjzlhx-fwwnhfw completes the activity by him/herself with no assistance from a helper. 5-Set-up or Clean-up Assistance-helper sets up or cleans up; patient completes activity. [place] assists only prior to or following the activity. 4-Supervision or Touching Assistance-helper provides verbal cues and/or touching/steadying and/or contact guard assistance as patient completes activity. Assistance may be provided throughout the activity or intermittently. 3-Partial/Moderate Assistance-helper does LESS THAN HALF the effort. [place] lifts, holds or supports trunk or limbs, but provides less than half the effort. 2-Substantial/Maximal Assistance-helper does MORE THAN HALF the effort. [place] lifts or holds trunk or limbs and provides more than half the effort. 1-Avmzbkzpq-kgzbet does ALL the effort. Patient does none of the effort to complete the activity. Or, the assistance of 2 or more helpers is required for the patient to complete the activity. If activity was not attempted, code reason: 7-Patient Refused. 9-Not Applicable-not attempted and the patient did not perform the activity before the current illness, exacerbation or injury. 10-Not Attempted due to Environmental Limitations-(lack of equipment, weather restraints, etc.). 88-Not Attempted due to Medical Conditions or Safety Concerns. Lying to Sitting/Side of Bed(Q: 6 Sit to Stand (QC): 6 Chair/Tkh-ze-Uwvkt Xfer(QC): 6 Toilet Transfer (QC): 6 Weight Bearing Left Lower Extremity: Left Weight Bearing/Tolerated Gait Training Does the Patient Walk?: Yes Distance: 200' x 2 Walk 10 feet (QC): 6 Walk 50 ft with 2 Turns(QC): 6 Walk 150 ft (QC): 6 Gait Assistive Device: FWW slow, antalgic gait sequence/reciprocal pattern Stair Training Stair Training: Handrails/: 2 handrails #of Steps: 4 1 Step (curb) (QC): 6 4 Steps (QC): 6 Stairs: Pattern: Step to Exercises Supine Ex: Ankle pumps, Quad Set, Heel Slides, Straight leg raise Supine Reps: 15 (x 2 sets) Seated Therapy Exercises: Long arc quads Seated Reps: 15 (x 2 sets) Assessment Patient requires much encouragement to actively perform exercises due to pain left knee. Patient tolerated treatment and educated to perform exercises and to ambulate PRN to receive maximum rehab potential. Patient voices understanding. Patient will dismiss on this date. PT [facility] Goals Search Marketing Analyst Goals PT Search Marketing Analyst Goals Time Frame: Feb 03, 2021 Roll Left & Right (QC): 6 Sit to Lying (QC): 6 Lying-Sitting on Side/Bed(QC): 6 Sit to Stand (QC): 6 Chair/Zkj-ms-Yrzqy Xfer(QC): 6 Toilet Transfer (QC): 6 Car Transfer (QC): 6 Does the Patient Walk: Yes Walk 10 feet (QC): 6 Walk 50ft with 2 Turns (QC): 6 Walk 150 ft (QC): 5 1 Step (curb) (QC): 4 4 Steps (QC): 4 12 Steps (QC): 4 PT Plan Treatment/Plan Treatment Plan: Continue Plan of Care Treatment Plan: Bed Mobility, Education, Functional Activity Olegario, Functional Strength, Group Therapy, Gait, Safety, Therapeutic Exercise, Transfers Treatment Duration: Mar 31, 2021 Frequency: 11 times per week Estimated Hrs Per Day: .25 hour per day Time/GCodes Time In: 816 Time Out: 843 Total Billed Treatment Time: 27 Total Billed Treatment 1 visit FA 15 min EX 12 min POLLO PARK PT Jan 29, 2021 11:15
[2021-01-29 11:47] VITALS: BP 130/77
--- NOTE | 2021-01-29 14:00 | Physical Therapy Daily Note ---
PT Daily Note-Current Subjective Patient agrees to PT. Patient continues to be very tearful due to left knee pain with meds issued. Pain Numeric Pain Scale: 10-Worst Possible Pain Location: Left Location Body Site: Knee Pain Description: Acute Mental Status Patient Orientation: Normal For Age Transfers SCALE: Activities may be completed with or without assistive devices. 2-Tfrznbhglm-qtbuilg completes the activity by him/herself with no assistance from a helper. 5-Set-up or Clean-up Assistance-helper sets up or cleans up; patient completes activity. [place] assists only prior to or following the activity. 4-Supervision or Touching Assistance-helper provides verbal cues and/or touching/steadying and/or contact guard assistance as patient completes activity. Assistance may be provided throughout the activity or intermittently. 3-Partial/Moderate Assistance-helper does LESS THAN HALF the effort. [place] li fts, holds or supports trunk or limbs, but provides less than half the effort. 2-Substantial/Maximal Assistance-helper does MORE THAN HALF the effort. [place] lifts or holds trunk or limbs and provides more than half the effort. 6-Ijwvtusue-pblzwi does ALL the effort. Patient does none of the effort to complete the activity. Or, the assistance of 2 or more helpers is required for the patient to complete the activity. If activity was not attempted, code reason: 7-Patient Refused. 9-Not Applicable-not attempted and the patient did not perform the activity before the current illness, exacerbation or injury. 10-Not Attempted due to Environmental Limitations-(lack of equipment, weather restraints, etc.). 88-Not Attempted due to Medical Conditions or Safety Concerns. Sit to Lying (QC): 6 Lying to Sitting/Side of Bed(Q: 6 Sit to Stand (QC): 6 Weight Bearing Left Lower Extremity: Left Weight Bearing/Tolerated Gait Training Does the Patient Walk?: Yes Distance: 250' Walk 10 feet (QC): 6 Walk 50 ft with 2 Turns(QC): 6 Walk 150 ft (QC): 6 Gait Assistive Device: FWW steady, antalgic Exercises Supine Ex: Ankle pumps, Quad Set, Heel Slides, Straight leg raise Supine Reps: 15 Seated Therapy Exercises: Long arc quads Seated Reps: 15 Assessment Patient to dismiss to home this p.m. Patient instructed to perform HEP issued by physician, 3/day at 15 reps. Patient voices understanding. PT Detention Goals Mixer Driver Goals PT Mixer Driver Goals Time Frame: Feb 03, 2021 Roll Left & Right (QC): 6 Sit to Lying (QC): 6 Lying-Sitting on Side/Bed(QC): 6 Sit to Stand (QC): 6 Chair/Woa-cr-Xvqxw Xfer(QC): 6 Toilet Transfer (QC): 6 Car Transfer (QC): 6 Does the Patient Walk: Yes Walk 10 feet (QC): 6 Walk 50ft with 2 Turns (QC): 6 Walk 150 ft (QC): 5 1 Step (curb) (QC): 4 4 Steps (QC): 4 12 Steps (QC): 4 PT Plan Treatment/Plan Treatment Plan: Discontinue PT, goals met Treatment Plan: Bed Mobility, Education, Functional Activity Olegario, Functional Strength, Group Therapy, Gait, Safety, Therapeutic Exercise, Transfers Treatment Duration: Mar 31, 2021 Frequency: 11 times per week Estimated Hrs Per Day: .25 hour per day Time/GCodes Time In: 1330 Time Out: 1346 Total Billed Treatment Time: 16 Total Billed Treatment 1 visit FA 16 min POLLO PARK PT Jan 29, 2021 14:00
[2021-01-29] MEDS ORDERED: morphine INJ 4 MG/ML 1 ML (VIAL/SYRINGE) ONE (14:09)
[2021-01-29 16:41] VITALS: BP 146/72
[2021-01-29 20:54] VITALS: BP 144/67
[2021-01-29] MEDS: ZOLPIDEM 5 MG (AMBIEN) TAB PO PRN (23:03)
[2021-01-30] VITALS: BP 125/81
[2021-01-30] MEDS: oxyCODONE/APAP 5/325MG (PERCOCET 5) TABLET PO PRN ×3 (02:36→09:30)
[2021-01-30 04:09] VITALS: BP 116/80
[2021-01-30] MEDS: MULTIVIT W/MINERALS TAB (THERAGRAN M) PO SCH (06:21)
[2021-01-30 07:00] LABS: HEMOGLOBIN 11.3 g/dL (11.5-16.0)
[2021-01-30 08:00] VITALS: BP 145/79
[2021-01-30] MEDS ORDERED: polyethylene glycoL POWDER 17 GM (MIRALAX) PACK PO ONE (08:00)
[2021-01-30] MEDS: ENOXAPARIN 30 MG/0.3 ML (LOVENOX) SYR SC SCH (08:27)
[2021-01-30] MEDS: ASPIRIN E.C. 81 MG (ECOTRIN) TAB PO SCH (08:27)
[2021-01-30] MEDS: SENNA W/DOCUSATE (SENOKOT S) TABLET PO SCH (08:55)
[2021-01-30] MEDS ORDERED: OXYC1TAB87 PO (09:41)
--- NOTE | 2021-01-30 09:44 | Progress Note ---
Standard Progress Note Progress Notes/Assess & Plan Date Seen by a Provider: Jan 30, 2021 Time Seen by a Provider: 09:43 Progress/Assessment & Plan post op check no complaints radiographs--HW well positioned without fracture LLE--dressing intact. 2 plus DP pulse with brisk cap refill. INtact DF and PF of toes and ankle. Sensation intact to light touch throughout s/p LTKA mobilize as able Final Diagnosis no complaints Vital Signs Date Time Temp Pulse Resp B/P (MAP) Pulse Ox O2 Delivery O2 Flow Rate FiO2 01/30/21 08:00 36.2 73 20 145/79 (101) 97 Room Air 01/30/21 08:00 Room Air 01/30/21 04:09 36.7 93 17 116/80 (92) 97 Room Air 01/30/21 00:00 36.7 90 17 125/81 (96) 96 Room Air 01/29/21 20:54 36.9 86 18 144/67 (92) 96 Room Air 01/29/21 20:00 Room Air 01/29/21 16:41 36.9 85 20 146/72 (96) 92 Room Air 01/29/21 11:47 36.7 65 18 130/77 (94) 98 Room Air I & O 01/30/21 07:00 Intake Total 2225 ml Balance 2225 ml Laboratory Tests Test 01/30/21 06:45 Range/Units Hemoglobin 11.3 L 11.5-16.0 g/dL Hematocrit 35 35-52 % LLE dressing intact. No calf tenderness. able to perform SLR s/p LTKA DC home KENDAL LANGE MD Jan 30, 2021 09:44
--- NOTE | 2021-01-30 10:34 | DISCHARGE SUMMARY ---
DATE OF SERVICE: ADDENDUM Her date of discharge became 01/30/2021 rather than 01/29/2021 due to pain management issues. Job ID: [id number] DocumentID: [id number] Dictated Date: 01/30/2021 09:43:23 Candy Wrapping Machine Operator Date: 01/30/2021 10:33:10 Dictated By: KENDAL LANGE MD
== END 2021-01-30 10:52 | disposition home health service (06) | DRG 470 ==
LOC: 4TH 05:54 → SURG 05:55 → EDSTATUS 07:30 → 4TH 10:32
PROVIDERS: ADMIT Orthopaedic Surgery; ATTEND Orthopaedic Surgery
PROC: 0SRD0J9 Replacement of Left Knee Joint with Synthetic Substitute, Cemented, Open Approach (ICD-10-PCS; principal; 2021-01-27 07:31)
DX: M17.12 Unilateral primary osteoarthritis, left knee (principal); K21.9 Gastro-esophageal reflux disease without esophagitis; E03.9 Hypothyroidism, unspecified; G40.909 Epilepsy, unspecified, not intractable, without status epilepticus; F31.9 Bipolar disorder, unspecified; M54.9 Dorsalgia, unspecified; J30.9 Allergic rhinitis, unspecified
CPT/HCPCS: 36415; 73560; 85014; 85018; 86850; 86900; 86901; 94664

== ENCOUNTER 2021-03-31 09:45 | Outpatient (CLI) | payer MEDICARE ==
[~2021-03-31] VITALS: Ht 162.6 cm; Wt 83.2 kg
[~2021-03-31 09:45] MED LIST changes: +DICL50TA6 PO; +LEVO175T58 PO; +OXYC1TAB87 PO
[2021-03-31 10:33] LABS: BASOPHILS % (AUTO) 1 % (0-10); EOSINOPHILS # (AUTO) 0.1 10^3/uL (0.0-0.3); EOSINOPHILS % (AUTO) 1 % (0-10); HEMATOCRIT 39 % (35-52); HEMOGLOBIN 12.4 g/dL (11.5-16.0); LYMPHOCYTES # (AUTO) 1.4 10^3/uL (1.0-4.0); LYMPHOCYTES % (AUTO) 29 % (12-44); MEAN CORPUSCULAR HEMOGLOBIN 28 pg (25-34); MEAN CORPUSCULAR HGB CONC 32 g/dL (32-36); MEAN CORPUSCULAR VOLUME 86 fL (80-99); MEAN PLATELET VOLUME 10.3 fL (9.0-12.2); MONOCYTES # (AUTO) 0.3 10^3/uL (0.0-1.0); MONOCYTES % (AUTO) 7 % (0-12); NEUTROPHILS # (AUTO) 2.9 10^3/uL (1.8-7.8); NEUTROPHILS % (AUTO) 61 % (42-75); PLATELET COUNT 326 10^3/uL (130-400); WHITE BLOOD COUNT 4.7 10^3/uL (4.3-11.0)
[2021-03-31 10:35] LABS: BILIRUBIN,URINE NEGATIVE (NEGATIVE); CLARITY,URINE CLOUDY; COLOR,URINE DARK YELLOW; GLUCOSE, URINE (UA) NEGATIVE (NEGATIVE); KETONES,URINE NEGATIVE (NEGATIVE); LEUKOCYTE ESTERASE ,URINE NEGATIVE (NEGATIVE); NITRITE,URINE NEGATIVE (NEGATIVE); PROTEIN,URINE TRACE (NEGATIVE)
[2021-03-31 10:44] LABS: PROTHROMBIN TIME PATIENT 13.2 SEC (12.2-14.7)
[2021-03-31 10:44] LABS: BACTERIA,URINE MODERATE /HPF; RBC,URINE RARE /HPF; WBC,URINE 0-2 /HPF
[2021-03-31 10:51] LABS: ALBUMIN 4.2 GM/DL (3.2-4.5); BILIRUBIN,TOTAL 0.3 MG/DL (0.1-1.0); CALCIUM 9.3 MG/DL (8.5-10.1); CREATININE SERUM 1.36 MG/DL (0.60-1.30); POTASSIUM 4.6 MMOL/L (3.6-5.0); TOTAL PROTEIN 7.3 GM/DL (6.4-8.2)
[2021-03-31 11:26] LABS: ERYTHROCYTE SEDIMENTATION RATE 11 MM/HR (0-30)
== END 2021-03-31 10:45 | disposition home or self-care (01) ==
LOC: PREOP 09:45
PROVIDERS: ATTEND Orthopaedic Surgery
DX: Z01.818 Encounter for other preprocedural examination (principal); M17.11 Unilateral primary osteoarthritis, right knee
CPT/HCPCS: 36415; 80053; 81000; 85025; 85610; 85652; 86850; 86900; 86901; 87081; 87088

== ENCOUNTER 2021-04-07 07:15 | Inpatient (IN) | payer MEDICARE ==
--- NOTE | 2021-03-31 14:58 | HISTORY AND PHYSICAL ---
DATE OF SERVICE: This will be for inpatient admission on 04/07/2021 for right total knee arthroplasty. The patient will require regular inpatient admission due to pain management, need for physical therapy and comorbidities. HISTORY OF PRESENT ILLNESS: The patient is a 55-year-old female with progressively worsening right knee pain. Radiographs reveal severe tricompartmental osteoarthritis. She has undergone treatment with injections, anti-inflammatories and rest without relief. Due to functional impairment and failure to improve with conservative measures, the patient elected to proceed with surgical intervention. REVIEW OF SYSTEMS: No chest pain, no shortness of breath, no dysuria. PAST MEDICAL HISTORY: Back pain, constipation, reflux, allergic rhinitis, depression, hypothyroidism, bipolar disorder and seizure disorder. PAST SURGICAL HISTORY: Left shoulder arthroscopy, , tubal ligation, left wrist internal fixation and left total knee arthroplasty. FAMILY HISTORY: Significant for diabetes, hypothyroidism and coronary artery disease. PRIMARY CARE PROVIDER: Fernando Gould through [facility]. MEDICATIONS: Levothyroxine, Ambien and Promethazine. ALLERGIES: CARIPRAZINE. SOCIAL HISTORY: The patient denies alcohol and tobacco use. PHYSICAL EXAMINATION: GENERAL: The patient is well-developed, well-nourished, in no acute distress. HEENT: Normocephalic, atraumatic. Pupils are equal, round and reactive to light. Oropharynx is clear. NECK: Supple, no lymphadenopathy. LUNGS: Clear to auscultation bilaterally. HEART: Regular rate and rhythm. ABDOMEN: Soft, nontender, nondistended. EXTREMITIES: The right knee demonstrates varus alignment. She has marked patellofemoral crepitus and pain with patellar loading. No varus or valgus laxity. Negative anterior and posterior drawer. Range of motion is 0/2/130. IMPRESSION: Severe right knee osteoarthritis. PLAN: Right total knee arthroplasty. The risks, benefits, options, ramifications and recovery were discussed at length with the patient. She understands and wishes to proceed. Job ID: [id number] DocumentID: [id number] Dictated Date: 03/22/2021 10:56:07 [employer] Date: 03/22/2021 11:12:58 Dictated By: KENDAL LANGE MD
[2021-04-07] VITALS (11 sets, daily range): BP systolic 109–144; BP diastolic 69–94
[~2021-04-07] VITALS: Ht 162 cm; Wt 83.2 kg
--- OUTSIDE RECORDS SUMMARY | 2021-04-07 07:21 | XMS REPORT | Clinical Summary ---
Author Author [facility] Organization [facility] Address Unknown Phone Unavailable Care Team Providers Care Advertising Designer Name Role Phone PCP Unavailable Allergies Not on File Medications Not on file Active Problems Not on file Social History Date Tobacco Use Types Packs/Day Years Used Never Assessed Sex Assigned at Date Recorded Not on file Last Filed Vital Signs Not on file Plan of Treatment Health Maintenance Due Date Last Done Comments Hepatitis C Screen 1965 Td/Tdap# 1965 COVID-19 Vaccine (1) 1969 Cervical Cancer Screening 1985 via Pap Smear Colorectal Screening via 2014 Colonoscopy Mammogram Screening 2014 Zoster Vaccine# (1 of 2) 2014 Influenza Vaccine (#1) 2021 03/01/2019, 02/15/2018 Pneumococcal Vaccine: Aged Out No longer eligib le based on patient's age to Pediatrics (0 to 5 Years) complete this topic and At-Risk Patients (6 to 64 Years) Results Not on filefrom Last 3 Months Insurance Type Payer Benefit Subscriber ID Effective Phone Address Plan / Dates Group WORKERS COMPENSATION MISC WORK [id number] 2013 [phone] [id number] COMP -Present [facility] [address] [place] [address] Advance Directives For more information, please contact: [phone] Patient Dope Maintenance Worker Explanation Type Date Recorded Health Care Directive
--- OUTSIDE RECORDS SUMMARY | 2021-04-07 07:21 | XMS REPORT ---
Author Heather Llanes Organization [facility] oup Address [address] [place] [id number] Care Team Providers Care Radiotelegraph Operator Servicer Name Role Phone Zena Vernon PCP Carmen Goetz PreferredProvider Allergies and Adverse Reactions Name Reaction Notes NO KNOWN DRUG ALLERGIES Plan of Treatment Not available. Medications Active Name Start Date Estimated Completion Date SIG Co mments levothyroxine 150 mcg oral capsule take 1 capsule (150 mcg) by oral route once daily Ambien 5 mg oral tablet take 1 t ablet (5 mg) by oral route once daily at bedtime Name Start Date Expiration Date SIG Comments Adderall 20 mg oral tablet 09/09/2009 10/09/2009 take 1 tablet (20 mg) by oral route once daily before breakfast for 30 days Viibryd 40 mg oral tablet 09/06/2011 03/04/2012 take 1 tablet (40 mg) by oral route once daily with food for 30 days Claritin 10 mg oral tablet 09/06/2011 04/03/2012 take 1 tablet (10 mg) by oral route once daily for 30 days terbinafine HCl 250 mg oral tablet 09/06/2011 12/05/2011 take 1 tablet (250 mg) by oral route once daily for 30 days Estrogens Conjugated 0.5 mg vaginally 12/31/2012 04/30/2013 0.5 mg twice weekly amoxicillin 500 mg oral capsule 12/14/2015 12/24/2015 take 2 capsules by oral route 2 times a day for 10 days Zithromax 250 mg oral tablet 06/23/2016 06/28/2016 bridgett e 2 tablets (500 mg) by oral route once daily for 1 day then 1 tablet (250 mg) by oral route once daily for 4 days Adderall 15 mg oral tablet 10/06/2016 11/05/2016 1 tab am and 1 tab noon for ADD Nature-Throid 81.25 mg oral tablet 05/11/2017 take 1.5 tablets by oral route 2 times a day for 90 days Discontinued Name Start Date Discontinued Date SIG Comments Ritalin 10 mg oral tablet 09/09/2009 take 1 tablet b y oral route daily Xanax 0.25 mg oral tablet 03/25/2016 06/23/2016 take 1 tablet by oral route 2 times a day as needed Lexapro 10 mg oral tablet 09/16/2016 10/06/2016 take 1 tablet (10 mg) by oral route once daily for 30 days Problem List Description Status Onset Allergic rhinitis; due to other allergen Active Hypothyroidism, unspecified type Active 12/19/19 16 Vital Signs Date Time BP-Sys(mm[Hg] BP-Dayanna(mm[Hg]) HR(bpm) RR(rpm) Temp WT HT HC BMI BSA BMI Percentile O2 Sat(%) 03/14/2021 3:58:00 PM 130 mm[Hg] 80 mm[Hg] 97 {beats}/min 18 rpm 97.9 F 180 lbs 63 in 31.8852 kg/m2 1.905 m2 96 % 12/26/2019 10:41:00 AM 88 {beats}/min 99.7 F 97 % 11/24/2016 11:11:00 AM 152 mm[Hg] 102 mm[Hg] 84 {beats}/min 22 rpm 98.4 F 167.5 lbs 63 in 29.671 kg/m2 1.8377 m2 97 % 10/25/2016 11:05:00 AM 138 mm[Hg] 80 mm[Hg] 104 {beats}/min 18 rpm 99.1 F 174.125 lbs 63 in 30.84 kg/m2 1.87 m2 97 % 10/06/2016 1:08:00 PM 148 mm[Hg] 90 mm[Hg] 112 {beats}/min 18 rpm 99.8 F 180.25 lbs 63 in 31.93 kg/m2 1.91 m2 97 % 06/23/2016 2:50:00 PM 142 mm[Hg] 98 mm[Hg] 100 {beats}/min 20 rpm 99.2 F 168.375 lbs 63 in 29.826 kg/m2 1.8425 m2 99 % 12/14/2015 3:19:00 PM 140 mm[Hg] 100 mm[Hg] 101 {beats}/min 16 rpm 97.9 F 99 % 12/31/2012 8:34:00 AM 147 mm[Hg] 83 mm[Hg] 100 {beats}/min 98.1 F 169.125 lbs 63 in 29.96 kg/m2 1.85 m2 12/04/2012 9:11:00 AM 139 mm[Hg] 88 mm[Hg] 109 {beats}/min 97.8 F 165.375 lbs 63 in 29.2946 kg/m2 1.826 m2 09/26/2011 10:34:00 AM 132 mm[Hg] 66 mm[Hg] 66 {beats}/min 18 rpm 98.1 F 172.125 lbs 63 in 30.49 kg/m2 1.86 m2 09/06/2011 4:35:00 PM 128 mm[Hg] 66 mm[Hg] 68 {beats}/min 18 rpm 98.9 F 175 lbs 63 in 30.9995 kg/m2 1.8784 m2 08/11/2011 8:26:00 AM 138 mm[Hg] 76 mm[Hg] 68 {beats}/min 18 rpm 97.4 F 169.5 lbs 63 in 30.03 kg/m2 1.85 m2 10/14/2009 9:22:00 AM 120 mm[Hg] 80 mm[Hg] 180 lbs 09/09/2009 9:17:00 AM 122 mm[Hg] 72 mm[Hg] 64 {beats}/min 16 rpm 98 F 183.25 lbs 08/10/2009 12:01:00 PM 120 mm[Hg] 70 mm[Hg] 97.4 F 189 lbs Social History Name Description Comments Alcohol Use - Rare Tobacco Never smoker History of Procedures Date Ordered Description Order Status 09/28/2011 12:00 AM URINALYSIS AUTO W/O SCOPE Reviewed 06/23/2016 12:00 AM THER/PROPH/DIAG INJ SC/IM Reviewed 06/23/2016 12:00 AM Decadron 4mg Injection Reviewed 06/23/2016 12:00 AM Depo-Medrol 40mg Injection Reviewed 10/25/2016 12:00 AM Toradol 60 Mg Injection Reviewed 10/25/2016 12:00 AM THER/PROPH/DIAG INJ SC/IM Reviewed 12/26/2019 12:00 AM COVID-19 Testing Returned 03/14/2021 12:00 AM THER/PROPH/DIAG INJ SC/IM Reviewed Results Summary Not available. History Of Immunizations Not available. History of Past Illness Name Date of Onset Comments Allergic rhinitis; due to other allergen Attention Deficit Disorder Aug 10 2009 12:03PM Seasonal Allergies Aug 10 2009 12:03PM Anxiety Disorder Oct 14 2009 9:23AM Attention Deficit Disorder Oct 14 2009 9:23AM Anxiety Disorder Sep 09 2009 9:21AM Attention Deficit Disorder Sep 09 2009 9:21AM Hypothyroidism, unspecified type 12/19/2015 Anemia Anxiety Depression Fractured bone Headache GERD Insomnia Kidney stones Kidney infection Weight Change Depression Aug 11 2011 8:28AM Depression Sep 06 2011 4:37PM Onychomycosis Of Toenail Sep 06 2011 4:37PM Hematuria Sep 26 2011 10:36AM Menopausal Syndrome Dec 04 2012 9:20AM Dyspareunia Dec 04 2012 9:20AM Irregular Menstrual Cycle Dec 04 2012 9:20AM Hormone Replacement Therapy Dec 31 2012 8:39AM Hypothyroidism, unspecified type Dec 14 2015 3:22PM Acute suppurative otitis media of left e ar without spontaneous rupture of tympanic membrane, recurrence not specified Dec 14 2015 3:22PM Anxiety Dec 14 2015 3:22PM Divorce Dec 14 2015 3:22PM Cough Jun 23 2016 2:53PM Ruptured eardrum, left Jun 23 2016 2:53PM Acute suppurative otitis media of left e ar with spontaneous rupture of tympanic membrane, recurrence not specified Jun 23 2016 2:53PM Reactive airway disease that is not asthma Jun 23 2016 2:53 PM Depression Jun 23 2016 2:53PM Hypothyroidism, unspecified type Sep 16 2016 2:50PM ADHD (attention deficit hyperactivity disorder), combi marcell type Oct 06 2016 1:09PM Stress headache Oct 25 2016 11:08AM Depression Nov 24 2016 11:14AM Suicidal behavior with attempted self-injury Nov 24 2016 11: 14AM Post concussion syndrome Nov 24 2016 11:14AM Diarrhea Dec 26 2019 10:44AM Loss of taste Dec 26 2019 10:44AM Loss of smell Dec 26 2019 10:44AM Allergic reaction to vaccine Mar 14 2021 4:01PM Payers Insurance Name Company Name Plan Name Plan Number Policy Number [place] Group Number Start Date Medicare RHC Medicare RHC [id number] N/ A Medicare Part A Medicare - Lab/Xray [id number] N/A [employer] [place] [id number] Mo nday, August 10, 2009 [employer] [place] [id number] [place], May 08, 2011 [employer] [place] [id number] N/ A History of Encounters Visit Date Visit Type Provider 03/14/2021 Office visit Zena CAMARA RN 12/26/2019 Office visit Sadie CAMARA RN 11/24/2016 Office visit Carmen Nye PRN 10/25/2016 Office visit Carmen Nye PRN 10/06/2016 Office visit Carmen Nye PRN 06/23/2016 Office visit Carmen Nye PRN 12/14/2015 Office visit Sukhdev Conde APR N 12/31/2012 Office visit Sharron roque RECREATION THERAPY AIDE 12/04/2012 Office visit Sharron roque RECREATION THERAPY AIDE 09/26/2011 Office visit Reyna Parkinson RECREATION THERAPY AIDE 09/06/2011 Office visit Reyna Parkinson RECREATION THERAPY AIDE 08/11/2011 Office visit Reyna Parkinson RECREATION THERAPY AIDE 10/14/2009 Office visit Rudolph Watson DO 09/09/2009 Office visit Rudolph Watson DO 08/10/2009 Office visit Rudolph Watson DO
[2021-04-07] MEDS ORDERED: CEFUROXIME 1.5 GM/15 ML (ZINACEF) VIAL ONE (07:27)
[2021-04-07] MEDS ORDERED: morphine PCA 100 MG/100 ML BAG IV PRN (07:30)
[2021-04-07] MEDS ORDERED: ONDANSETRON 4 MG/2 ML (SDV) Z0FRAN IVP PRN ×2 (07:30→11:15)
[2021-04-07] MEDS ORDERED: diphenhydrAMINE 50 MG/ML INJ (BENADRYL) IVP PRN (07:30)
[2021-04-07] MEDS ORDERED: NALOXONE 0.4 MG/ML 1 ML (NARCAN) VIAL IV PRN (07:30)
[2021-04-07] MEDS ORDERED: fentaNYL INJ 100 MCG/2 ML AMP ONE (07:36)
[2021-04-07] MEDS ORDERED: MIDAZOLAM 2 MG/2 ML (VERSED) VIAL ONE (07:36)
[2021-04-07] MEDS ORDERED: ROPIVACAINE 5MG/ML 30ML VIAL ONE (07:36)
[2021-04-07] MEDS ORDERED: LIDOCAINE PF 2% 5 ML (XYLOCAINE) VIAL ONE ×2 (07:39→08:15)
--- NOTE | 2021-04-07 07:42 | Progress Note-Pre Operative ---
Pre-Operative Progress Note H&P Reviewed The H&P was reviewed, patient examined and no changes noted. Date Seen by Provider: Apr 07, 2021 Time Seen by Provider: 07:31 Date H&P Reviewed: Apr 07, 2021 Time H&P Reviewed: 07:11 Pre-Operative Diagnosis: right knee primary osteoarthritis KENDAL LANGE MD Apr 07, 2021 07:42
--- NOTE | 2021-04-07 07:43 | Progress Note-Post Operative ---
Post-Operative Progess Note Surgeon (s)/Package Line Operator (s) Surgeon KENDAL LANGE MD Package Line Operator: Rikki Capellan Pre-Operative Diagnosis right knee primary osteoarthritis Post-Operative Diagnosis right knee primary osteoarthritis Procedure & Operative Findings Date of Procedure 04/07/21 Procedure Performed/Findings right total knee arthroplasty Anesthesia Type GETA Estimated Blood Loss Estimated blood loss (mL): minimal Specimens/Packing Specimens Removed none Packing: none KENDAL LANGE MD Apr 07, 2021 07:43
--- NOTE | 2021-04-07 07:45 | D/C HH Face to Face Order ---
D/C Face to Face Orders Reconcile Patient Problems Problems Reviewed?: Yes Instructions for Patient Via [facility], Patient Instructions/FollowUp: three weeks Physician to follow Patient: three weeks Discharge Diet for Home: Regular Diet Patient Data-Allergies,Ht & Wt Patient Allergies: Coded Allergies: lurasidone (Verified Allergy, Unknown, "wanted to kill people", 01/20/21) propranolol (Verified Allergy, Unknown, swollen eyes and dizziness, 01/20/21) Uncoded Allergies: JULIANA AND JULIANA COVID VACCINE (Allergy, Unknown, FACIAL SWELLING, 03/31/21) Home Health Need/Face to Face Date of Face to Face: Apr 07, 2021 Clinical Findings: Muscle weakness, Pain with ambulation, Unsteady gait I have seen Pt dkif-re-suus: Yes Discharged To: Home Diagnosis/Conditions: right total knee arthroplasty Patient is Homebound due to: Muscle weakness, Pain w/ambulation Homebound Status Due to the above stated illness, injury or surgical procedure (medical condition or diagnosis) and associated clinical findings, the patient is homebound because of his/her inability to leave home except with aid of a supportive device and/or person AND leaving the home requires a considerable and taxing effort or is medically contraindicated. Pt req the following assistanc: Walker Home Health Nursing Orders Home Health Services Order: Physical Therapy-Evaluate & Treat DC right knee arielle and apply steri strips 04/21/21 Therapy Orders Therapy Orders: Physical Therapy, PT to assess for OT Therapy Specific Orders: Eval assistive deivces, Teach enviro modifications/safety, Gait training, Increase strength/endurance, Provider maintenance therapy, Restore ROM Certify Stmt I certify that this patient is under my care and that I, a nurse practitioner or a physician; a corporate law assistant working with me, had a face to face encounter that - meets the physician face to face encounter requirements with this patient as dated. KENDAL LANGE MD Apr 07, 2021 07:45
[2021-04-07] MEDS: LACTATED RINGERS 1,000 ML IV PRN ×2 (07:50→09:32)
[2021-04-07] MEDS ORDERED: [UNRECOGNIZED DRUG - OTHER] IU ONE ×4 (08:00)
[2021-04-07] MEDS ORDERED: ROPIVACAINE IU ONE ×4 (08:00)
[2021-04-07] MEDS ORDERED: EPINEPHRINE IU ONE ×4 (08:00)
[2021-04-07] MEDS ORDERED: CEFUROXIME INJECTION 1,500 MG in NS (IVPB) 50 ML IV ONE (08:00)
[2021-04-07] MEDS ORDERED: NS IU ONE ×4 (08:00)
[2021-04-07] MEDS ORDERED: ONDANSETRON 4 MG/2 ML (SDV) Z0FRAN ONE (08:15)
[2021-04-07] MEDS ORDERED: proPOfol 200 MG/20 ML (DIPRIVAN) VIAL IV ONE (08:15)
[2021-04-07] MEDS ORDERED: TRANEXAMIC ACID 100 MG/ML 10 ML INJECTION ONE ×2 (08:18→09:44)
[2021-04-07] MEDS ORDERED: ZOLPIDEM 5 MG (AMBIEN) TAB PO PRN ×2 (09:30→16:00)
[2021-04-07] MEDS ORDERED: ALPRAZolam 0.25 MG (XANAX) TAB PO PRN (09:30)
[2021-04-07] MEDS ORDERED: WATER (STERILE) FOR INJECTION 20 ML ONE (09:39)
[2021-04-07] MEDS ORDERED: HYDROmorphone 2 MG/ML VIAL (DILAUDID) ONE (10:46)
[2021-04-07] MEDS ORDERED: SEVOFLURANE (ULTANE) 15 ML INHAL SOLN ONE (11:08)
[2021-04-07] MEDS ORDERED: HYDROmorphone 2 MG/ML VIAL (DILAUDID) IV ONE (11:15)
[2021-04-07] MEDS ORDERED: fentaNYL INJ 100 MCG/2 ML AMP IVP ONE (11:15)
--- NOTE | 2021-04-07 12:13 | Progress Note ---
Standard Progress Note Progress Notes/Assess & Plan Date Seen by a Provider: Apr 07, 2021 Time Seen by a Provider: 11:41 Progress/Assessment & Plan post op check no complaints radiographs--HW well positioned without fracture RLE--2 plus DP pulse with brisck cap refill s/p R TKA mobilize as able KENDAL LANGE MD Apr 07, 2021 12:13
[2021-04-07] MEDS: SENNA W/DOCUSATE (SENOKOT S) TABLET PO SCH ×2 (13:36→20:20)
[2021-04-07] MEDS: NS IV 1000 ML 1,000 ML IV SCH ×2 (13:57→20:20)
[2021-04-07] MEDS: oxyCODONE/APAP 5/325MG (PERCOCET 5) TABLET PO PRN (13:59)
--- NOTE | 2021-04-07 14:52 | Consultation - Hospitalist ---
JOEL SOTELO 04/07/21 1452: HPI History of Present Illness: HPI/Chief Complaint Consultation requested by Dr. Galvan. Patient is being seen status-post right knee total arthroplasty. Patient also had left knee replacement done 01/27/21. Her past surgical history also includes three c-sections. Patient is still groggy from her surgery but feels like everything went well and is happy to have the surgery over with. Patient states that her current medical history includes hypothyroidism, bipolar disorder, PTSD, insomnia, and depression. Her hypothyroidism stems from radiation therapy for previous hyperthyroidism. She states she normally takes levothyroxine 150 mcg and that has kept it well controlled. Her PTSD, bipolar disorder, and depression all stem from a divorce with her previous . Patient states that she is seen by Cynthia Plascencia APRN at [facility]. She does not know the name of any medications she normally takes for these conditions. She just knows that she normally receives one shot every six weeks for her PTSD and bipolar disorder, takes an oral medication for her depression, and an oral medication for insomnia. After her last knee replacement she was given zolpidem for insomnia and seemed to tolerate that well. Patient is otherwise not treated for any additional chronic medical conditions. Patient did have compression devices on bilateral lower extremities. Source: patient Date Seen 04/07/21 Attending Physician Omero Galvan MD PCP No,Local Physician Referring Physician Date of Admission Apr 07, 2021 at 07:15 Home Medications & Allergies Home Medications Reviewed patient Home Medication Reconciliation performed by pharmacy medication reconciliations blood bank laboratory technician and/or nursing. Patients Allergies have been reviewed. Allergies Allergies Coded Allergies lurasidone (Verified Allergy, Unknown, "wanted to kill people", 04/07/21) propranolol (Verified Allergy, Unknown, swollen eyes and dizziness, 04/07/21) Uncoded Allergies JULIANA AND JULIANA COVID VACCINE ( Allergy, Unknown, FACIAL SWELLING, 03/31/21) Past Pcvtzvk-Bvbdvc-Pgfmqn Hx Patient Social History Marrital Status: Tobacco Use?: No Smoking Status: Never a Smoker Smokeless Tobacco Frequency: Never a User Use of E-Cig and/or Vaping Wiley: Never a User Alcohol Use?: No Pt feels they are or have been: No Immunizations Up To Date Date of Influenza Vaccine: Mar 14, 2021 First/Initial COVID19 Vaccinat: 03/13/21 Seasonal Allergies Seasonal Allergies: No Current Status status: No Advance Directives: No Communicates: Verbally Primary Language: Moldovan Preferred Spoken Language: Moldovan Is interpretation needed?: No Implanted or Applied Medical D: Orthopedic hardware Past Medical History Surgeries: Section (x3), Orthopedic (total knee arthroplasty, left knee) Currently Using CPAP: No Currently Using BIPAP: No Seizure Disorder Arthritis Hypothyroidsim (post radiation therapy for hyperthyroidism) Sleep Difficulties, Anxiety, Bipolar, Depression Blood Disorders: No Review of Systems Constitutional: No chills, No fever EENTM: no symptoms reported Respiratory: No cough, No short of breath Cardiovascular: No chest pain, No palpitations Gastrointestinal: No abdominal pain, No nausea, No vomiting Genitourinary: no symptoms reported Musculoskeletal: joint pain (Right knee) Skin: other (patient concered about a 1 cm x 1 cm black spot on her back. States it has been there for 5 years and has grown in that time. States it is s ometimes painful. ) Physical Exam Physical Exam Vital Signs Vital Signs - First Documented 04/07/21 07:40 Temp 36.3 Pulse 83 Resp 20 B/P (MAP) 109/78 (88) Pulse Ox 94 O2 Delivery Room Air Capillary Refill : Less Than 3 Seconds Height, Weight, BMI Height: '" Weight: lbs. oz. kg; 31.70 BMI Method: General Appearance: No Apparent Distress, WD/WN HEENT: PERRL/EOMI, Moist Mucous Membranes Neck: Non Tender, Supple Respiratory: Chest Non Tender, Lungs Clear, Normal Breath Sounds, No Accessory Muscle Use, No Respiratory Distress Cardiovascular: Regular Rate, Rhythm, No Murmur Gastrointestinal: Normal Bowel Sounds, Non Tender, Soft Rectal: Deferred Extremity: Normal Capillary Refill, Non Tender Neurologic/Psychiatric: Alert, Oriented x3, Normal Mood/Affect Skin: Normal Color, Warm/Dry Results Results/Procedures Labs Patient resulted labs reviewed. Assessment/Plan Assessment and Plan Assess & Plan/Chief Complaint Assessment Status-post right knee total arthroplasty Hypothyroidism Bipolar disorder PTSD Depression Plan Pain management Stool softener Continue compression devices Incentive spirometer Consider zolpidem if pt unable to sleep Continue home meds BERNARDA ENGEL DO 04/08/21 0553: HPI History of Present Illness: HPI/Chief Complaint CC: Right knee replacement HPI: This is a 55yoWF clinic patient of [facility] who has a h/o mental illness who presents after an uncomplicated RTKR. Patient is doing well and has no com plaints. Source: patient Exam Limitations: no limitations Past Bjbmpow-Abrkdf-Murdol Hx Patient Social History Marrital Status: Employed/Student: unemployed Smoking Status: Former Smoker Past Medical History Bipolar, Depression Review of Systems Constitutional: see HPI EENTM: no symptoms reported Respiratory: no symptoms reported Cardiovascular: no symptoms reported Gastrointestinal: no symptoms reported Physical Exam Physical Exam General Appearance: No Apparent Distress, WD/WN Eyes: Bilateral Eye Normal Inspection, Bilateral Eye PERRL HEENT: PERRL/EOMI, Normal ENT Inspection, Pharynx Normal Neck: Full Range of Motion, Normal Inspection, Non Tender, Supple, Carotid Bruit Respiratory: Chest Non Tender, Lungs Clear, Normal Breath Sounds, No Accessory Muscle Use, No Respiratory Distress Cardiovascular: Regular Rate, Rhythm, No Edema, No Gallop, No JVD, No Murmur, Normal Peripheral Pulses Gastrointestinal: Normal Bowel Sounds, No Organomegaly, No Pulsatile Mass, Non Tender, Soft Back: Normal Inspection, No CVA Tenderness, No Vertebral Tenderness Extremity: Normal Capillary Refill, Normal Inspection, Normal Range of Motion (excep right leg in CPM), Non Tender, No Calf Tenderness, No Pedal Edema Neurologic/Psychiatric: Alert, Oriented x3, No Motor/Sensory Deficits, Normal Mood/Affect Skin: Normal Color, Warm/Dry Lymphatic: No Adenopathy Assessment/Plan Assessment and Plan Assess & Plan/Chief Complaint Assessment: Right TKR Bipolar Hypothyroidism Plan: Pain control Supervisory-Addendum Brief Verification & Attestation Participated in pt care: history, MDM, physical Personally performed: exam, history, MDM, supervision of care Care discussed with: Medical Student Procedures: n/a Results interpretation: Verified all documentation Verification and Attestation of Medical Student E/M Service A medical student performed and documented this service in my presence. I reviewed and verified all information documented by the medical student and made modifications to such information, when appropriate. I personally performed the physical exam and medical decision making. Bernarda Engel Apr 08, 2021,05:53 DEEPAKJOEL Apr 07, 2021 14:52 BERNARDA ENGEL DO Apr 08, 2021 05:53
--- NOTE | 2021-04-07 15:41 | Physical Therapy Evaluation ---
PT Evaluation-General Medical Diagnosis Admission Date Apr 07, 2021 at 07:15 Medical Diagnosis: right TKA Onset Date: Apr 07, 2021 Therapy Diagnosis Therapy Diagnosis: impaired mobility, strength, endurance, ROM Weight Bear Status Right Lower Extremity: Right Weight Bearing/Tolerated Referral Physician: Timi Reason for Referral: Evaluation/Treatment Medical History Additional Medical History PAST MEDICAL HISTORY: Back pain, constipation, reflux, allergic rhinitis, depression, hypothyroidism, bipolar disorder and seizure disorder. PAST SURGICAL HISTORY: Left shoulder arthroscopy, , tubal ligation, left wrist internal fixation and left total knee arthroplasty. Reviewed History: Yes Social History Home: Single Level Entry Into Home: Stairs Without Railing PT Steps Into Home: 3 Prior Prior Level of Function SCALE: Activities may be completed with or without assistive devices. 2-Kprkxlpajh-zfawnov completes the activity by him/herself with no assistance from a helper. 5-Set-up or Clean-up Assistance-helper sets up or cleans up; patient completes activity. [place] assists only prior to or following the activity. 4-Supervision or Touching Assistance-helper provides verbal cues and/or touching/steadying and/or contact guard assistance as patient completes activity. Assistance may be provided throughout the activity or intermittently. 3-Partial/Moderate Assistance-helper does LESS THAN HALF the effort. [place] lifts, holds or supports trunk or limbs, but provides less than half the effort. 2-Substantial/Maximal Assistance-helper does MORE THAN HALF the effort. [place] lifts or holds trunk or limbs and provides more than half the effort. 6-Cwyscbbio-rfrioi does ALL the effort. Patient does none of the effort to complete the activity. Or, the assistance of 2 or more helpers is required for the patient to complete the activity. If activity was not attempted, code reason: 7-Patient Refused. 9-Not Applicable-not attempted and the patient did not perform the activity before the current illness, exacerbation or injury. 10-Not Attempted due to Environmental Limitations-(lack of equipment, weather restraints, etc.). 88-Not Attempted due to Medical Conditions or Safety Concerns. Bed Mobility: 6 Transfers (B,C,W/C): 6 Gait: 6 Stairs: 6 Indoor Mobility (Ambulation): Independent Stairs: Independent PT Evaluation-Current Subjective Patient in bed pre tx, agrees to PT, has no complaints of pain Pt/Family Goals to be independent at home Objective Patient Orientation: Person, Place, Situation Attachments: Oxygen, IV ROM/Strength ROM Lower Extremities right knee flexion 50 degrees, extension +2 degrees Sensory Hearing: Functional Sensation Right Lower Extremit: Impaired (patient's leg is still numb below the knee) Sensation Left Lower Extremity: Intact Transfers Roll Left to Right (QC): 6 Sit to Lying (QC): 4 Lying to Sitting/Side of Bed(Q: 4 Sit to Stand (QC): 4 Chair/Dro-wl-Pdfof Xfer(QC): 4 Toilet Transfer (QC): 4 Gait Does the Patient Walk?: Yes Mode of Locomotion: Walk Anticipated Mode of Locomotion: Walk Walk 10 feet (QC): 4 Walk 50 ft with 2 Turns(QC): 4 Distance: 50', 20' Gait Assistive Device: FWW Comments/Gait Description Patient ambulates into the hallway and then to her restroom, then back to bed. Patient ambulates slow but steady, good step through but painful Balance Sitting Static: Normal Sitting Dynamic: Normal Standing Static: Good Standing Dynamic: Good Treatment supine RTKA protocol x10 (AP, QS, HS, SAQ, SLR), CPM donned and set to 50/-2 degrees Assessment/Needs Patient in bed post tx with nurse call, phone, tray, all needs met. Patient has impaired mobility, ,strength, endurance, ROM. Patient's leg is till numb below the knee an she doesn't have any voluntary dorsiflexion Rehab Potential: Fair PT Halfway Goals Halfway Goals PT Beam Dyer Operator Goals Time Frame: Apr 14, 2021 Roll Left & Right (QC): 6 Sit to Lying (QC): 6 Lying-Sitting on Side/Bed(QC): 6 Sit to Stand (QC): 6 Chair/Rmn-xr-Piedw Xfer(QC): 6 Walk 10 feet (QC): 6 Walk 50ft with 2 Turns (QC): 6 Walk 150 ft (QC): 6 PT Plan Problem List Problem List: Activity Tolerance, Functional Strength, Safety, Balance, Gait, Transfer, Bed Mobility, ROM Treatment/Plan Treatment Plan: Continue Plan of Care Treatment Plan: Bed Mobility, Education, Functional Activity Olegario, Functional Strength, Gait, Safety, Therapeutic Exercise, Transfers Treatment Duration: Apr 14, 2021 Frequency: 11 times per week Estimated Hrs Per Day: .25 hour per day Patient and/or Family Agrees t: Yes Safety Risks/Education Patient Education: Gait Training, Transfer Techniques, Correct Positioning, Safety Issues Teaching Recipient: Patient Teaching Methods: Demonstration, Discussion Response to Teaching: Reinforcement Needed Discharge Recommendations Plan Patient will perform bed mobility and transfer training, balance and endurance training, functional strengthening, stair training, gait training, and education, to improve functional mobility and independence at home. Therapy Discharge Recommendati: Home & Family, Post Acute PT Time/GCodes Time In: 1503 Time Out: 1530 Total Billed Treatment Time: 27 Total Billed Treatment 1 visit EVL 10' FA 17' RAYO ARREDONDO PT Apr 07, 2021 15:41
[2021-04-07] MEDS: CEFUROXIME INJECTION 750 MG in NS (IVPB) 50 ML IV SCH (15:44)
--- NOTE | 2021-04-07 15:44 | Diagnostic Imaging Report ---
HISTORY: Postop right knee arthroplasty. TECHNIQUE: Two views of the right knee. COMPARISON: None. FINDINGS: There is a right total knee arthroplasty. Alignment is normal. No immediate hardware complication is seen. There is intra-articular air and fluid. There is surrounding soft tissue edema and air. Skin arielle are seen anteriorly. IMPRESSION: Post surgical changes from right knee arthroplasty with no immediate hardware complication seen. Dictated by: Dictated on workstation # [id number]
[2021-04-07] MEDS ORDERED: ARIPIPRAZOLE LAUROXIL 1064 MG IM SCH (15:45)
--- NOTE | 2021-04-07 16:56 | OPERATIVE REPORT ---
DATE OF SERVICE: 04/07/2021 PREOPERATIVE DIAGNOSIS: Right knee primary osteoarthritis. POSTOPERATIVE DIAGNOSIS: Right knee primary osteoarthritis. PROCEDURE: Right total knee arthroplasty. SURGEON: Omero Lange MD MARKET RISK MANAGER: Rikki Capellan, who assisted throughout the procedure and closed the incision. ANESTHESIA: General endotracheal by Lyndsey Tao CRNA. TOURNIQUET TIME: Approximately 60 minutes at 300 mmHg. ESTIMATED BLOOD LOSS: Minimal. DRAINS: None. COMPLICATIONS: None. POSTOPERATIVE PLAN: Routine protocol. The patient was transferred to the recovery room awake and stable condition. MATERIALS: Microport cemented size 3 femur, cemented size 3 tibia with 10 mm insert and a cemented 32 patellar button. STATEMENT OF MEDICAL NECESSITY: The patient is a 55-year-old female with progressively worsening right knee pain. Radiographs revealed severe medial and patellofemoral arthrosis. She has undergone treatment with injections, anti-inflammatories and rest without relief. Due to functional impairment and failure to improve with conservative measures, the patient elected to proceed with surgical intervention. DESCRIPTION OF PROCEDURE: After risks and benefits of procedure were discussed and questions were answered, an informed consent was signed and placed on the chart. The operative site was confirmed in the preoperative holding area and initialed by the surgeon. The patient was then transferred to the operating room and after adequate levels of general endotracheal anesthetic were obtained, a timeout was called, confirming the operative site. The right lower extremity was prepped and draped in the usual sterile fashion with the leg elevated and the knee flexed, the tourniquet was inflated to 300 mmHg. Standard anterior approach was utilized. Hemostasis was obtained with cautery. Medial parapatellar arthrotomy was performed leaving 1 cm cuff on the patella for later reattachment. A portion of the fat pad was resected. A subperiosteal release was performed on the proximal medial tibia being careful to stay on the bony surface. The ACL was resected. The intramedullary guide was passed into the femoral canal. The distal cutting block was placed. Distal cut was made, the femur sized to a size 3. The 3 cutting block was placed parallel to the epicondylar axis and the cuts were made from posterior to anterior. A subperiosteal release was then carefully performed on posterior distal femur, being careful to stay on the bony surface. Intramedullary guide was then passed into the tibia. The cutting block was placed. The drop margarita transected the intermalleolar axis. The cut was made. The baseplate was placed and again, the drop margarita transected the intermalleolar axis. This was then prepared with the drill and keel punch. A 10 mm insert was placed. The femoral trial was placed and trochlear cut was made. The patella was then prepared by resecting 10 mm off the undersurface using the freehand technique. The peg guide was placed and peg holes were drilled. The 32 trial was placed. The knee was taken through range of motion. Full extension was easily obtained. There was no anterior/posterior or medial/lateral laxity in flexion or extension. The patella tracked well. The trials were removed. The bone ends were irrigated with pulse lavage. Periarticular block without Toradol was placed in the posterior capsule, medial and lateral retinaculum, extensor mechanism, and subcutaneous tissues. The bone ends were further irrigated and dried. The tibial baseplate was cemented into position. Excessive cement was removed, the superior surface was irrigated and dried and the polyethylene insert was placed. Distal femur was irrigated and dried and the femoral prosthesis was cemented into position. Excessive cement was removed. The knee was brought out into full extension until cement had cured. The undersurface of the patella was irrigated and dried and the patellar button was cemented into position. Excessive cement was removed. Once the cement had cured, the knee was taken through a range of motion. Full extension was easily obtained, 120 degrees of flexion with gravity was easily obtained. The patella tracked well. There was no anterior/posterior or medial/lateral laxity in flexion or extension. The joint was further irrigated with pulse lavage. Arthrotomy was closed with #2 Tevdek in gfpfno-he-[id number] interrupted fashion. Knee was flexed and the repair was stable. Subcutaneous tissues were irrigated using a total of 6 liters throughout the procedure. A 0 Vicryl was used for deep subcutaneous layer, 2-0 Vicryl for the superficial subcutaneous layer, arielle used on the skin. A soft dressing was applied. The tourniquet was deflated. The patient was transferred to the recovery room awake and in stable condition. Job ID: [id number] DocumentID: [id number] Dictated Date: 04/07/2021 11:01:57 Surveyor Rod Helper Date: 04/07/2021 16:55:39 Dictated By: OMERO LANGE MD
[2021-04-07] MEDS ORDERED: ILOPERIDONE 4 MG PO SCH (21:00)
[2021-04-08] VITALS: BP 122/91
[2021-04-08] MEDS: CEFUROXIME INJECTION 750 MG in NS (IVPB) 50 ML IV SCH ×2
[2021-04-08] MEDS: oxyCODONE/APAP 5/325MG (PERCOCET 5) TABLET PO PRN ×6 (03:43→20:14)
[2021-04-08 04:00] VITALS: BP 118/73
[2021-04-08 05:51] LABS: BASOPHILS % (AUTO) 0 % (0-10); EOSINOPHILS % (AUTO) 0 % (0-10); HEMATOCRIT 33 % (35-52); HEMOGLOBIN 10.6 g/dL (11.5-16.0); LYMPHOCYTES # (AUTO) 0.8 10^3/uL (1.0-4.0); LYMPHOCYTES % (AUTO) 9 % (12-44); MEAN CORPUSCULAR HEMOGLOBIN 28 pg (25-34); MEAN CORPUSCULAR HGB CONC 32 g/dL (32-36); MEAN CORPUSCULAR VOLUME 88 fL (80-99); MEAN PLATELET VOLUME 10.5 fL (9.0-12.2); MONOCYTES # (AUTO) 0.9 10^3/uL (0.0-1.0); MONOCYTES % (AUTO) 10 % (0-12); NEUTROPHILS # (AUTO) 7.3 10^3/uL (1.8-7.8); NEUTROPHILS % (AUTO) 81 % (42-75); PLATELET COUNT 244 10^3/uL (130-400)
[2021-04-08 05:59] LABS: ALBUMIN 3.8 GM/DL (3.2-4.5); POTASSIUM 4.3 MMOL/L (3.6-5.0)
[2021-04-08 06:01] LABS: CALCIUM 8.6 MG/DL (8.5-10.1)
[2021-04-08 06:02] LABS: TOTAL PROTEIN 6.6 GM/DL (6.4-8.2)
[2021-04-08 06:04] LABS: BILIRUBIN,TOTAL 0.3 MG/DL (0.1-1.0)
[2021-04-08] MEDS: LEVOTHYROXINE 75 MCG (LEVOTHROID) TABLET PO SCH (06:14)
[2021-04-08] MEDS: MULTIVIT W/MINERALS TAB (THERAGRAN M) PO SCH (06:14)
[2021-04-08] MEDS: ENOXAPARIN 30 MG/0.3 ML (LOVENOX) SYR SC SCH ×2 (06:14→17:51)
[2021-04-08] MEDS: LEVOTHYROXINE 100 MCG (LEVOTHROID) TAB PO SCH (06:14)
--- NOTE | 2021-04-08 07:59 | Progress Note ---
Standard Progress Note Progress Notes/Assess & Plan Date Seen by a Provider: Apr 08, 2021 Time Seen by a Provider: 07:58 Progress/Assessment & Plan post op check no complaints radiographs--HW well positioned without fracture RLE--2 plus DP pulse with brisck cap refill s/p R TKA mobilize as able Final Diagnosis no complaints Vital Signs Date Time Temp Pulse Resp B/P (MAP) Pulse Ox O2 Delivery O2 Flow Rate FiO2 04/08/21 06:05 20 04/08/21 04:00 35.9 59 20 118/73 (88) 95 Room Air 04/08/21 00:00 36.4 74 20 122/91 (101) 95 Room Air 04/07/21 20:35 35.8 67 18 134/69 (90) 96 Room Air 04/07/21 20:20 93 Room Air 04/07/21 18:36 20 04/07/21 15:43 36.0 69 20 122/77 (92) 93 Room Air 04/07/21 14:00 35.9 65 18 144/94 (111) 99 Nasal Cannula 04/07/21 14:00 93 Room Air 2.00 04/07/21 13:57 16 04/07/21 12:00 Nasal Cannula 2 04/07/21 12:00 36.1 12 132/88 (103) 95 Nasal Cannula 2 04/07/21 11:50 8 142/84 (103) 94 OxyMask 1 04/07/21 11:48 OxyMask 1 04/07/21 11:40 10 135/89 (104) 96 OxyMask 2 04/07/21 11:33 OxyMask 8 04/07/21 11:30 8 134/89 (104) 98 OxyMask 2 04/07/21 11:20 8 129/92 (104) 100 OxyMask 8 04/07/21 11:19 OxyMask 8 04/07/21 11:10 18 122/84 (97) 100 OxyMask 8 04/07/21 11:03 OxyMask 8 04/07/21 11:03 36.1 18 119/77 (91) 96 OxyMask 8 I & O 04/08/21 07:00 Intake Total 2790 ml Balance 2790 ml Laboratory Tests Test 04/08/21 05:20 Range/Units White Blood Count 9.0 4.3-11.0 10^3/uL Red Blood Count 3.79 L 3.80-5.11 10^6/uL Hemoglobin 10.6 L 11.5-16.0 g/dL Hematocrit 33 L 35-52 % Mean Corpuscular Volume 88 80-99 fL Mean Corpuscular Hemoglobin 28 25-34 pg Mean Corpuscular Hemoglobin Concent 32 32-36 g/dL Red Cell Distribution Width 17.4 H 10.0-14.5 % Platelet Count 244 130-400 10^3/uL Mean Platelet Volume 10.5 9.0-12.2 fL Immature Granulocyte % (Auto) 0 % Neutrophils (%) (Auto) 81 H 42-75 % Lymphocytes (%) (Auto) 9 L 12-44 % Monocytes (%) (Auto) 10 0-12 % Eosinophils (%) (Auto) 0 0-10 % Basophils (%) (Auto) 0 0-10 % Neutrophils # (Auto) 7.3 1.8-7.8 10^3/uL Lymphocytes # (Auto) 0.8 L 1.0-4.0 10^3/uL Monocytes # (Auto) 0.9 0.0-1.0 10^3/uL Eosinophils # (Auto) 0.0 0.0-0.3 10^3/uL Basophils # (Auto) 0.0 0.0-0.1 10^3/uL Immature Granulocyte # (Auto) 0.0 0.0-0.1 10^3/uL Sodium Level 136 135-145 MMOL/L Potassium Level 4.3 3.6-5.0 MMOL/L Chloride Level 103 98-107 MMOL/L Carbon Dioxide Level 24 21-32 MMOL/L Anion Gap 9 5-14 MMOL/L Blood Urea Nitrogen 14 7-18 MG/DL Creatinine 1.00 0.60-1.30 MG/DL Estimat Glomerular Filtration Rate 57 BUN/Creatinine Ratio 14 Glucose Level 96 70-105 MG/DL Calcium Level 8.6 8.5-10.1 MG/DL Corrected Calcium 8.8 8.5-10.1 MG/DL Total Bilirubin 0.3 0.1-1.0 MG/DL Aspartate Amino Transf (AST/SGOT) 16 5-34 U/L Alanine Aminotransferase (ALT/SGPT) 17 0-55 U/L Alkaline Phosphatase 65 40-136 U/L Total Protein 6.6 6.4-8.2 GM/DL Albumin 3.8 3.2-4.5 GM/DL RLE--dressing intact. Intact DF and PF of toes and ankle sensation intact throughout s/p RTKA PT/OT KENDAL LANGE MD Apr 08, 2021 07:59
[2021-04-08 08:00] VITALS: BP 113/76
[2021-04-08] MEDS: ASPIRIN E.C. 81 MG (ECOTRIN) TAB PO SCH (08:04)
[2021-04-08] MEDS: NS IV 1000 ML 1,000 ML IV SCH ×2 (08:04→15:45)
[2021-04-08] MEDS: SENNA W/DOCUSATE (SENOKOT S) TABLET PO SCH ×2 (08:04→17:53)
--- NOTE | 2021-04-08 08:06 | Anesthesia-General Post-Op ---
General Patient Condition Mental Status/LOC: Same as Preop Cardiovascular: Satisfactory Nausea/Vomiting: Absent Respiratory: Satisfactory Pain: Controlled Complications: Absent Post Op Complications Complications None Follow Up Care/Instructions Patient Instructions None needed. Anesthesia/Patient Condition Patient Condition Patient is doing well, no complaints, stable vital signs, no apparent adverse anesthesia problems. No complications reported per nursing. LISETH VERDIN CRNA Apr 08, 2021 08:06
--- NOTE | 2021-04-08 10:09 | Physical Therapy Daily Note ---
PT Daily Note-Current Subjective Patient rates right knee pain 10/10 with meds and MOLDER MACHINE TENDER. Pain Numeric Pain Scale: 10-Worst Possible Pain Location: Right Location Body Site: Knee Pain Description: Acute Mental Status Patient Orientation: Normal For Age Attachments: Polar Pack, IV Transfers SCALE: Activities may be completed with or without assistive devices. 7-Mulfafppgr-tvasfgl completes the activity by him/herself with no assistance from a helper. 5-Set-up or Clean-up Assistance-helper sets up or cleans up; patient completes activity. [place] assists only prior to or following the activity. 4-Supervision or Touching Assistance-helper provides verbal cues and/or touching/steadying and/or contact guard assistance as patient completes activity. Assistance may be provided throughout the activity or intermittently. 3-Partial/Moderate Assistance-helper does LESS THAN HALF the effort. [place] lifts, holds or supports trunk or limbs, but provides less than half the effort. 2-Substantial/Maximal Assistance-helper does MORE THAN HALF the effort. [place] lifts or holds trunk or limbs and provides more than half the effort. 7-Ycigpecjn-rvrmwy does ALL the effort. Patient does none of the effort to complete the activity. Or, the assistance of 2 or more helpers is required for the patient to complete the activity. If activity was not attempted, code reason: 7-Patient Refused. 9-Not Applicable-not attempted and the patient did not perform the activity before the current illness, exacerbation or injury. 10-Not Attempted due to Environmental Limitations-(lack of equipment, weather restraints, etc.). 88-Not Attempted due to Medical Conditions or Safety Concerns. Lying to Sitting/Side of Bed(Q: 6 Sit to Stand (QC): 4 Chair/Mzj-jz-Kgrto Xfer(QC): 4 Toilet Transfer (QC): 4 SBA with upright mobility Weight Bearing Right Lower Extremity: Right Weight Bearing/Tolerated Gait Training Does the Patient Walk?: Yes Distance: 225' Walk 10 feet (QC): 4 Walk 50 ft with 2 Turns(QC): 4 Walk 150 ft (QC): 4 Gait Assistive Device: FWW slow, antalgic step to gait sequence Exercises Supine Ex: Ankle pumps, Quad Set, Heel Slides, Straight leg raise Supine Reps: 15 Seated Therapy Exercises: Long arc quads Seated Reps: 15 Assessment Patient progressing with treatment plan and is up in recliner with needs met. Increase activity as tolerated by patient. Patient will dismiss to home with friend per patient report. PT Snf Goals Fish And Game Warden Goals PT Fish And Game Warden Goals Time Frame: Apr 14, 2021 Roll Left & Right (QC): 6 Sit to Lying (QC): 6 Lying-Sitting on Side/Bed(QC): 6 Sit to Stand (QC): 6 Chair/Rkr-gn-Jjcsw Xfer(QC): 6 Walk 10 feet (QC): 6 Walk 50ft with 2 Turns (QC): 6 Walk 150 ft (QC): 6 PT Plan Treatment/Plan Treatment Plan: Continue Plan of Care Treatment Plan: Bed Mobility, Education, Functional Activity Olegario, Functional Strength, Gait, Safety, Therapeutic Exercise, Transfers Treatment Duration: Apr 14, 2021 Frequency: 11 times per week Estimated Hrs Per Day: .25 hour per day Patient and/or Family Agrees t: Yes Time/GCodes Time In: 848 Time Out: 911 Total Billed Treatment Time: 23 Total Billed Treatment 1 visit EX 9 min GT 14 min POLLO PARK PT Apr 08, 2021 10:09
--- NOTE | 2021-04-08 10:40 | Occ Therapy Progress Note ---
Therapy Progress Note OT orders received and chart reviewed. OT visited with pt. Upon introducing self to pt, she states "I don't have an occupation". OT educated her on the purpose and benefit of OT with focus on self care, she replied "I'm fully capable". Pt declined further OT services, as she has already had her L knee replaced and knows what to expect at discharge, and doesn't wish to have further services. Per PT note, pt is currently SBA with ambulation using FWW, 225'. No skilled OT services indicated at this time, as pt refuses further OT service and indicates she is at her PLOF. D/C from OT. 1, visit 1015 ADALID STEELE OT Apr 08, 2021 10:40
[2021-04-08 11:46] VITALS: BP 129/82
--- NOTE | 2021-04-08 12:35 | Progress Note - Hospitalist ---
JOEL SOTELO 04/08/21 1235: Subjective HPI/CC On Admission Date Seen by Provider: Apr 08, 2021 Time Seen by Provider: 08:00 CC: Right knee replacement HPI: This is a 55yoWF clinic patient of [facility] who has a h/o mental illness who presents after an uncomplicated RTKR. Patient is doing well and has no complaint s. Subjective/Events-last exam Patient is post-op day 1 from a right total knee arthroplasty. States she is feeling good this morning and that her pain is well managed. Patient denies N/V, fever, chills, SOB, dysuria. Patients WBC 9.0 and Hgb is 10.6 Objective Exam Vital Signs Vital Signs Date Time Temp Pulse Resp B/P (MAP) Pulse Ox O2 Delivery O2 Flow Rate FiO2 04/08/21 11:46 36.1 59 18 129/82 (98) 95 Room Air 04/07/21 14:00 2.00 Capillary Refill : Less Than 3 Seconds General Appearance: No Apparent Distress, WD/WN HEENT: PERRL/EOMI, Moist Mucous Membranes Neck: Non Tender, Supple Respiratory: Chest Non Tender, Lungs Clear, Normal Breath Sounds, No Accessory Muscle Use, No Respiratory Distress Cardiovascular: Regular Rate, Rhythm, Normal Peripheral Pulses Gastrointestinal: Non Tender, Soft Rectal: Deferred Extremity: Normal Capillary Refill, Non Tender, No Calf Tenderness Neurologic/Psychiatric: Alert, Oriented x3, Normal Mood/Affect Skin: Normal Color, Warm/Dry Results/Procedures Lab Laboratory Tests 04/08/21 05:20 Patient resulted labs reviewed. Assessment/Plan Assessment and Plan Assess & Plan/Chief Complaint Assessment Status-post right knee total arthroplasty Hypothyroidism Bipolar disorder Plan Continue pain management Stool softener Continue compression devices Incentive spirometer Continue home meds BERNARDA ENGEL DO 04/09/21 0507: Subjective Subjective/Events-last exam Pt doing well Pain is okay Hgb 10.6 Maintain on bowel regimen Restarted all home meds yesterday Review of Systems Musculoskeletal: leg pain Objective Exam General Appearance: No Apparent Distress, WD/WN, Chronically ill Respiratory: Lungs Clear, Normal Breath Sounds Cardiovascular: Regular Rate, Rhythm Neurologic/Psychiatric: Alert, Oriented x3, No Motor/Sensory Deficits, Normal Mood/Affect Assessment/Plan Assessment and Plan Assess & Plan/Chief Complaint Supportive care Bowel regimen Pain control Supervisory-Addendum Brief Verification & Attestation Participated in pt care: history, MDM, physical Personally performed: exam, history, MDM, supervision of care Care discussed with: Medical Student Procedures: n/a Results interpretation: Verified all documentation Verification and Attestation of Medical Student E/M Service A medical student performed and documented this service in my presence. I reviewed and verified all information documented by the medical student and made modifications to such information, when appropriate. I personally performed the physical exam and medical decision making. Bernarda Engel Apr 09, 2021,05:06 JOEL SOTELO Apr 08, 2021 12:35 BERNARDA ENGEL DO Apr 09, 2021 05:07
--- NOTE | 2021-04-08 14:37 | Physical Therapy Daily Note ---
PT Daily Note-Current Subjective Patient reluctantly agrees to PT. Pain Numeric Pain Scale: 8 Location: Right Location Body Site: Knee Pain Description: Acute Mental Status Patient Orientation: Normal For Age Attachments: Polar Pack, IV Transfers SCALE: Activities may be completed with or without assistive devices. 4-Tdnpvcfkvl-umhzeme completes the activity by him/herself with no assistance from a helper. 5-Set-up or Clean-up Assistance-helper sets up or cleans up; patient completes activity. [place] assists only prior to or following the activity. 4-Supervision or Touching Assistance-helper provides verbal cues and/or touching/steadying and/or contact guard assistance as patient completes activity. Assistance may be provided throughout the activity or intermittently. 3-Partial/Moderate Assistance-helper does LESS THAN HALF the effort. [place] lifts, holds or supports trunk or limbs, but provides less than half the effort. 2-Substantial/Maximal Assistance-helper does MORE THAN HALF the effort. [place] lifts or holds trunk or limbs and provides more than half the effort. 7-Rbcawivxg-tcmcrz does ALL the effort. Patient does none of the effort to complete the activity. Or, the assistance of 2 or more helpers is required for the patient to complete the activity. If activity was not attempted, code reason: 7-Patient Refused. 9-Not Applicable-not attempted and the patient did not perform the activity before the current illness, exacerbation or injury. 10-Not Attempted due to Environmental Limitations-(lack of equipment, weather restraints, etc.). 88-Not Attempted due to Medical Conditions or Safety Concerns. Sit to Lying (QC): 6 Lying to Sitting/Side of Bed(Q: 6 Sit to Stand (QC): 6 Weight Bearing Right Lower Extremity: Right Weight Bearing/Tolerated Gait Training Does the Patient Walk?: Yes Distance: 250' Walk 10 feet (QC): 4 Walk 50 ft with 2 Turns(QC): 4 Walk 150 ft (QC): 4 Gait Assistive Device: FWW steady, reciprocal pattern Exercises Supine Ex: Ankle pumps, Quad Set, Heel Slides, Straight leg raise Supine Reps: 12 Seated Therapy Exercises: Long arc quads Seated Reps: 12 Assessment Patient declined CPM. Patient progressing with treatment plan. PT Canvas Goods Supervisor Goals Fpc Goals PT Fpc Goals Time Frame: Apr 14, 2021 Roll Left & Right (QC): 6 Sit to Lying (QC): 6 Lying-Sitting on Side/Bed(QC): 6 Sit to Stand (QC): 6 Chair/Mqo-xb-Rnvyu Xfer(QC): 6 Walk 10 feet (QC): 6 Walk 50ft with 2 Turns (QC): 6 Walk 150 ft (QC): 6 PT Plan Treatment/Plan Treatment Plan: Continue Plan of Care Treatment Plan: Bed Mobility, Education, Functional Activity Olegario, Functional Strength, Gait, Safety, Therapeutic Exercise, Transfers Treatment Duration: Apr 14, 2021 Frequency: 11 times per week Estimated Hrs Per Day: .25 hour per day Patient and/or Family Agrees t: Yes Time/GCodes Time In: 1355 Time Out: 1410 Total Billed Treatment Time: 15 Total Billed Treatment 1 visit FA 15 min POLLO PARK PT Apr 08, 2021 14:37
[2021-04-08 15:38] VITALS: BP 138/74
[2021-04-08 20:18] VITALS: BP 144/86
[2021-04-09] MEDS: oxyCODONE/APAP 5/325MG (PERCOCET 5) TABLET PO PRN ×5 (00:20→10:36)
[2021-04-09 00:30] VITALS: BP 160/90
[2021-04-09 04:00] VITALS: BP 141/68
[2021-04-09] MEDS: LEVOTHYROXINE 75 MCG (LEVOTHROID) TABLET PO SCH (06:15)
[2021-04-09] MEDS: ENOXAPARIN 30 MG/0.3 ML (LOVENOX) SYR SC SCH (06:15)
[2021-04-09] MEDS: MULTIVIT W/MINERALS TAB (THERAGRAN M) PO SCH (06:15)
[2021-04-09] MEDS: LEVOTHYROXINE 100 MCG (LEVOTHROID) TAB PO SCH (06:15)
[2021-04-09 06:22] LABS: BASOPHILS % (AUTO) 1 % (0-10); EOSINOPHILS # (AUTO) 0.1 10^3/uL (0.0-0.3); EOSINOPHILS % (AUTO) 2 % (0-10); HEMATOCRIT 33 % (35-52); HEMOGLOBIN 10.7 g/dL (11.5-16.0); LYMPHOCYTES % (AUTO) 22 % (12-44); MEAN CORPUSCULAR HEMOGLOBIN 28 pg (25-34); MEAN CORPUSCULAR HGB CONC 32 g/dL (32-36); MEAN CORPUSCULAR VOLUME 88 fL (80-99); MEAN PLATELET VOLUME 10.5 fL (9.0-12.2); MONOCYTES # (AUTO) 0.5 10^3/uL (0.0-1.0); MONOCYTES % (AUTO) 10 % (0-12); NEUTROPHILS % (AUTO) 65 % (42-75); PLATELET COUNT 238 10^3/uL (130-400); WHITE BLOOD COUNT 4.6 10^3/uL (4.3-11.0)
[2021-04-09 06:35] LABS: ALBUMIN 3.8 GM/DL (3.2-4.5)
[2021-04-09 06:36] LABS: CALCIUM 8.6 MG/DL (8.5-10.1)
[2021-04-09 06:38] LABS: TOTAL PROTEIN 6.7 GM/DL (6.4-8.2)
[2021-04-09 06:39] LABS: BILIRUBIN,TOTAL 0.4 MG/DL (0.1-1.0)
[2021-04-09 06:41] LABS: CREATININE SERUM 0.83 MG/DL (0.60-1.30)
--- NOTE | 2021-04-09 07:05 | Progress Note ---
Standard Progress Note Progress Notes/Assess & Plan Date Seen by a Provider: Apr 09, 2021 Time Seen by a Provider: 07:04 Progress/Assessment & Plan post op check no complaints radiographs--HW well positioned without fracture RLE--2 plus DP pulse with brisck cap refill s/p R TKA mobilize as able Final Diagnosis no complaints Vital Signs Date Time Temp Pulse Resp B/P (MAP) Pulse Ox O2 Delivery O2 Flow Rate FiO2 04/09/21 06:33 16 04/09/21 04:00 36.6 76 16 141/68 (92) 95 Room Air 04/09/21 00:30 36.2 72 16 160/90 (113) 97 Room Air 04/08/21 20:18 35.6 74 18 144/86 (105) 95 Room Air 04/08/21 20:15 Room Air 04/08/21 18:40 20 04/08/21 15:38 36.7 72 18 138/74 (95) 96 Room Air 04/08/21 11:46 36.1 59 18 129/82 (98) 95 Room Air 04/08/21 09:00 Room Air 04/08/21 08:00 35.5 56 20 113/76 (88) 97 Room Air I & O 04/09/21 07:00 Intake Total 1215 ml Balance 1215 ml Laboratory Tests Test 04/09/21 06:11 Range/Units White Blood Count 4.6 4.3-11.0 10^3/uL Red Blood Count 3.80 3.80-5.11 10^6/uL Hemoglobin 10.7 L 11.5-16.0 g/dL Hematocrit 33 L 35-52 % Mean Corpuscular Volume 88 80-99 fL Mean Corpuscular Hemoglobin 28 25-34 pg Mean Corpuscular Hemoglobin Concent 32 32-36 g/dL Red Cell Distribution Width 17.4 H 10.0-14.5 % Platelet Count 238 130-400 10^3/uL Mean Platelet Volume 10.5 9.0-12.2 fL Immature Granulocyte % (Auto) 0 % Neutrophils (%) (Auto) 65 42-75 % Lymphocytes (%) (Auto) 22 12-44 % Monocytes (%) (Auto) 10 0-12 % Eosinophils (%) (Auto) 2 0-10 % Basophils (%) (Auto) 1 0-10 % Neutrophils # (Auto) 3.0 1.8-7.8 10^3/uL Lymphocytes # (Auto) 1.0 1.0-4.0 10^3/uL Monocytes # (Auto) 0.5 0.0-1.0 10^3/uL Eosinophils # (Auto) 0.1 0.0-0.3 10^3/uL Basophils # (Auto) 0.0 0.0-0.1 10^3/uL Immature Granulocyte # (Auto) 0.0 0.0-0.1 10^3/uL Sodium Level 135 135-145 MMOL/L Potassium Level 4.0 3.6-5.0 MMOL/L Chloride Level 101 98-107 MMOL/L Carbon Dioxide Level 25 21-32 MMOL/L Anion Gap 9 5-14 MMOL/L Blood Urea Nitrogen 9 7-18 MG/DL Creatinine 0.83 0.60-1.30 MG/DL Estimat Glomerular Filtration Rate 71 BUN/Creatinine Ratio 11 Glucose Level 114 H 70-105 MG/DL Calcium Level 8.6 8.5-10.1 MG/DL Corrected Calcium 8.8 8.5-10.1 MG/DL Total Bilirubin 0.4 0.1-1.0 MG/DL Aspartate Amino Transf (AST/SGOT) 19 5-34 U/L Alanine Aminotransferase (ALT/SGPT) 17 0-55 U/L Alkaline Phosphatase 69 40-136 U/L Total Protein 6.7 6.4-8.2 GM/DL Albumin 3.8 3.2-4.5 GM/DL RLE--incision clean and dry. No calf tenderness. Neg Jovita's s/p RTKA doing well DC after PT today KENDAL LANGE MD Apr 09, 2021 07:05
[2021-04-09] MEDS ORDERED: morphine INJ 4 MG/ML 1 ML (VIAL/SYRINGE) IVP PRN (07:15)
[2021-04-09 07:50] VITALS: BP 164/79
[2021-04-09] MEDS: ASPIRIN E.C. 81 MG (ECOTRIN) TAB PO SCH (08:19)
[2021-04-09] MEDS: SENNA W/DOCUSATE (SENOKOT S) TABLET PO SCH (08:20)
--- NOTE | 2021-04-09 10:02 | DISCHARGE SUMMARY ---
DATE OF SERVICE: DIAGNOSES: 1. Right knee primary osteoarthritis. 2. Constipation. 3. Reflux. 4. Allergic rhinitis. 5. Depression. 6. Hypothyroidism. 7. Bipolar disorder. 8. Seizure disorder. PROCEDURE: Right total knee arthroplasty. SUMMARY: The patient is a 55-year-old female who underwent a right total knee arthroplasty on the day of admission. Postoperatively, she did well. At the time of discharge, her wound was clean and dry. She had no calf tenderness. Negative Homans sign. CONDITION AT DISCHARGE: Good. DISCHARGE DIET: Regular. FOLLOWUP: Followup is in 3 weeks. DISCHARGE MEDICATIONS: Home medications, aspirin one per day for 4 weeks and Percocet as needed for pain. Job ID: [id number] DocumentID: [id number] Dictated Date: 04/08/2021 16:39:03 Study Coordinator Date: 04/09/2021 10:01:31 Dictated By: KENDAL LANGE MD
--- NOTE | 2021-04-09 10:06 | Physical Therapy Daily Note ---
PT Daily Note-Current Subjective Patient reports she slept well. Agrees to PT. Pain Numeric Pain Scale: 8 Location: Right Location Body Site: Knee Pain Description: Acute Comment: with meds issued Mental Status Patient Orientation: Normal For Age Transfers SCALE: Activities may be completed with or without assistive devices. 1-Nvruadmbzb-djhbbzf completes the activity by him/herself with no assistance from a helper. 5-Set-up or Clean-up Assistance-helper sets up or cleans up; patient completes activity. [place] assists only prior to or following the activity. 4-Supervision or Touching Assistance-helper provides verbal cues and/or shankar krystyna/steadying and/or contact guard assistance as patient completes activity. Assistance may be provided throughout the activity or intermittently. 3-Partial/Moderate Assistance-helper does LESS THAN HALF the effort. [place] lifts, holds or supports trunk or limbs, but provides less than half the effort. 2-Substantial/Maximal Assistance-helper does MORE THAN HALF the effort. [place] lifts or holds trunk or limbs and provides more than half the effort. 2-Ynjlwllfb-xorwcr does ALL the effort. Patient does none of the effort to complete the activity. Or, the assistance of 2 or more helpers is required for the patient to complete the activity. If activity was not attempted, code reason: 7-Patient Refused. 9-Not Applicable-not attempted and the patient did not perform the activity before the current illness, exacerbation or injury. 10-Not Attempted due to Environmental Limitations-(lack of equipment, weather restraints, etc.). 88-Not Attempted due to Medical Conditions or Safety Concerns. Lying to Sitting/Side of Bed(Q: 6 Sit to Stand (QC): 6 Chair/Jkx-dc-Cgzla Xfer(QC): 6 Weight Bearing Right Lower Extremity: Right Weight Bearing/Tolerated Gait Training Does the Patient Walk?: Yes Distance: 250' Walk 10 feet (QC): 6 Walk 50 ft with 2 Turns(QC): 6 Walk 150 ft (QC): 6 Gait Assistive Device: FWW reciprocal pattern Stair Training 1 Step (curb) (QC): 7 4 Steps (QC): 7 Exercises Supine Ex: Ankle pumps, Quad Set, Heel Slides (limited due to pain/resists AAROM), Straight leg raise Supine Reps: 12 Assessment Patient tolerated treatment well and will dismiss to home with friend assist this a.m. Patient encouraged to perform HEP PRN at home and increase right knee flexion with static technique. Patient voices understanding. PT Long-Term Goals Stainless Steel Finisher Goals PT Stainless Steel Finisher Goals Time Frame: Apr 14, 2021 Roll Left & Right (QC): 6 Sit to Lying (QC): 6 Lying-Sitting on Side/Bed(QC): 6 Sit to Stand (QC): 6 Chair/Kib-qp-Vfyqn Xfer(QC): 6 Walk 10 feet (QC): 6 Walk 50ft with 2 Turns (QC): 6 Walk 150 ft (QC): 6 PT Plan Treatment/Plan Treatment Plan: Discontinue PT Treatment Plan: Bed Mobility, Education, Functional Activity Olegario, Functional Strength, Gait, Safety, Therapeutic Exercise, Transfers Treatment Duration: Apr 14, 2021 Frequency: 11 times per week Estimated Hrs Per Day: .25 hour per day Patient and/or Family Agrees t: Yes Time/GCodes Time In: 800 Time Out: 812 Total Billed Treatment Time: 12 Total Billed Treatment 1 visit FA 12 min [facility] PT Apr 09, 2021 10:06
== END 2021-04-09 10:55 | disposition home health service (06) | DRG 470 ==
LOC: 4TH 07:15 → SURG 07:16 → 4TH 12:54
PROVIDERS: ADMIT Orthopaedic Surgery; ATTEND Orthopaedic Surgery
PROC: 0SRC0J9 Replacement of Right Knee Joint with Synthetic Substitute, Cemented, Open Approach (ICD-10-PCS; principal; 2021-04-07 09:32)
DX: M17.11 Unilateral primary osteoarthritis, right knee (principal); K59.00 Constipation, unspecified; K21.9 Gastro-esophageal reflux disease without esophagitis; J30.9 Allergic rhinitis, unspecified; E89.0 Postprocedural hypothyroidism; F31.9 Bipolar disorder, unspecified; G40.909 Epilepsy, unspecified, not intractable, without status epilepticus; F43.10 Post-traumatic stress disorder, unspecified; G47.00 Insomnia, unspecified; Z96.652 Presence of left artificial knee joint; Z83.49 Family history of other endocrine, nutritional and metabolic diseases
CPT/HCPCS: 36415; 73560; 80053; 85025; 86850; 86900; 86901